=== PATIENT | female | born 1950 | race Caucasian/White ===

== ENCOUNTER → 2021-10-18 13:28 | Outpatient (CLI) | payer MEDICARE, SELFPAY ==
--- NOTE | ~2021-10-18 | MM_ITS ---
EXAMINATION: MM screening daniel BI w earle HISTORY: Screening mammogram TECHNIQUE: Craniocaudal and mediolateral oblique 3-D tomosynthesis images were obtained and synthetic 2-D images were generated. CAD analysis was submitted and interpreted. COMPARISON: 04/13/2018, 04/03/2017, 03/27/2016 bilateral screening mammogram examinations BREAST PARENCHYMAL COMPOSITION: There are scattered areas of fibroglandular density. FINDINGS: There is no evidence of suspicious mass, calcification, or architectural distortion to sugg est malignancy in either breast. There has been no suspicious interval change. IMPRESSION: 1. No mammographic evidence of malignancy. 2. Recommend routine screening mammography in one year. BI-RADS Category 1: Negative Reviewed, dictated and finalized at location A.
== END ==
PROVIDERS: PCP Family Medicine; Visit Provider Family Medicine
DX: Z12.31 Encounter for screening mammogram for malignant neoplasm of breast (principal)
CPT/HCPCS: 77063; 77067

== ENCOUNTER 2022-09-14 14:13 | Inpatient (IN) | payer MEDICARE, SELFPAY ==
[2022-09-14] VITALS (18 sets, daily range): BP systolic 154–176; BP diastolic 71–88; PULSE 54–84; RESP 12–16; TEMP 36–36.4; O2SAT 87–100; BMI 17.6
--- NOTE | ~2022-09-14 | MR_ITS ---
MRI of the brain Clinical History: Frequent falls Technique: Axial and sagittal T1-weighted images were acquired. These were followed by axial T2-weigh tyson, diffusion weighted, gradient, and FLAIR images. Following intravenous administration of 9 cc Mul tiHance gadolinium, T1-weighted fat-sat imaging was performed in the axial and coronal planes. Findings: There is no acute infarct, intracranial hemorrhage, or mass lesion. There is moderate to ad vanced chronic microvascular ischemic change throughout the periventricular white matter bilaterally. Ventricles and some arachnoid spaces are dilated. Orbits are unremarkable. Paranasal sinuses and mast oid air cells are clear. Major intracranial flow voids are probably intact, though the distal right v ertebral artery appears diminutive/hypoplastic. Sagittal midline structures are intact. No abnormal postcontrast enhancement identified. IMPRESSION: No acute infarct, intracranial hemorrhage, or mass lesion. Moderate to advanced chronic microvascular ischemic change and mild to moderate generalized atrophy. Reviewed, dictated and finalized at [facility].
--- NOTE | ~2022-09-14 | XR_ITS ---
Portable chest x-ray Comparison: None Clinical History: Syncope Findings: Lungs are clear, without focal consolidation or pleural effusion. Cardiomediastinal silho uette is unremarkable. Bones and soft tissues are unremarkable. Impression: Clear lungs. Reviewed, dictated and finalized at location M. Impression: Clear lungs.
--- NOTE | ~2022-09-14 | CT_ITS ---
CT head without contrast Indication: Status post fall Technique: Serial scans were obtained through the brain without the administration of contrast. Dose reduction technique was used on this scan by utilizing automated exposure control and iterative recon struction technique. The dose-length product (DLP) was 756.67 mGy-cm. Findings: There is no evidence of intracranial hemorrhage, mass lesion, or acute infarct. The ventri cles and subarachnoid spaces are dilated, consistent with moderate atrophy. Low attenuation regions are seen within the periventricular white matter bilaterally, likely representing changes from chroni c microvascular ischemic disease. There is no evidence of edema, mass effect or midline shift. The visualized paranasal sinuses and mastoid air cells are clear. Impression: No intracranial hemorrhage, mass, or acute infarct. Atrophy and chronic white matter changes, as above. Reviewed, dictated and finalized at location . Impression: No intracranial hemorrhage, mass, or acute infarct. Atrophy and chronic white matter changes, as above.
--- NOTE | ~2022-09-14 | US_ITS ---
Procedure: Duplex Doppler examination of the bilateral carotids. Indication: Multiple falls Technique: Real time, color-flow and pulse wave Doppler examination of the bilateral carotids was performed. Findings: Ken[place] scale ultrasonography of the right neck demonstrated small plaque at the right carotid bulb/prox imal right ICA. There was demonstration of normal color-flow and Doppler waveforms within the right c ommon, internal and external carotid arteries. The peak systolic velocities in the right common, inte rnal and external carotid arteries were demonstrated to be 56 cm/sec, 49 cm/sec and 74 cm/sec respect ively. The right ICA/CCA ratio was 0.9.The proximal right internal carotid artery demonstrates 0% payton nosis relative to the normal distal artery lumen diameter. Kenney scale sonography of the left neck demonstrated small calcified plaques at the proximal left inte rnal carotid artery. There was demonstration of normal color-flow and wave forms within the left comm on, internal and external carotid arteries. The peak systolic velocities in the left common, internal and external carotid arteries were demonstrated to be 62cm/sec, 42 cm/sec and 63 cm/sec respectively . The left ICA/CCA ratio was 0.7. The proximal left internal carotid artery demonstrates 0% stenosis relative to the normal distal artery lumen diameter. There was antegrade flow demonstrated in the bilateral vertebral arteries. Impression: No hemodynamically significant stenosis of the bilateral internal carotid arteries. Antegrade flow in the bilateral vertebral arteries. Note: The methodology used is an indirect measurement validated against a direct method (such as the NASCET criteria) that compares diameters at the stenosis to the distal ICA. Reviewed, dictated and finalized at location . Impression: No hemodynamically significant stenosis of the bilateral internal carotid arter ies. Antegrade flow in the bilateral vertebral arteries. Note: The methodology used is an indirect measurement validated against a direct meth od (such as the NASCET criteria) that compares diameters at the stenosis to the distal ICA.
--- NOTE | ~2022-09-14 | CT_ITS ---
Noncontrast CT scan of the cervical spine Technique: Multiple contiguous axial [address] images of the cervical spine were obtained and rec onstructed in 2D sagittal and coronal planes on the acquisition scanner. Dose reduction technique was used on this scan by utilizing automated exposure control, adjustment of the mA and/or kV according to patient size. The dose-length product (DLP) was 114.29 mGy-cm. Clinical History: Pain Findings: No fractures or dislocations. There is moderate degenerative disc narrowing at C4-C5 and C 5-C6. There is uncovertebral degenerative change at C5-C6 bilaterally, right worse than left. There i s right neural foraminal narrowing at C5-C6. Small disc ossify complexes are present at C4-C5 and C5- C6. No prevertebral soft tissue swelling. Impression: No fracture or subluxation of the cervical spine. Mild degenerative spondylosis, as above. Reviewed, dictated and finalized at [facility]. Impression: No fracture or subluxation of the cervical spine. Mild degenerative spondylosis, as above.
--- NOTE | ~2022-09-14 | CT_ITS ---
CT of the Abdomen and Pelvis: Indication: Syncope Technique: 2.5 mm axial scans were obtained through the abdomen and pelvis following intravenous adm inistration of 100 cc of Omnipaque 350. Dose reduction technique was used on this scan by utilizing a utomated exposure control and iterative reconstruction technique. The dose-length product (DLP) was 2 70.02 mGy-cm. Findings: Scans through the lung bases are unremarkable. Diffuse fatty infiltration of the liver noted. The spleen, pancreas, gallbladder, adrenals and kidney s are within normal limits. There are atherosclerotic calcifications of the aorta. No lymphadenopath y. No bowel obstruction or bowel wall thickening. There is no evidence to suggest acute appendicitis. Images through the pelvis were performed. Urinary bladder unremarkable. No pelvic mass seen. No ascit es. Impression: No acute abnormality. Diffuse fatty infiltration of the liver. Reviewed, dictated and finalized at [facility]. Impression: No acute abnormality. Diffuse fatty infiltration of the liver.
--- NOTE | 2022-09-14 14:17 | ECG_ITS ---
Measurements Intervals [place] Rate: 53 P: 62 GA: 141 QRS: 54 QRSD: 82 T: 73 QT: 431 QTc: 406 Interpretive Statements SINUS BRADYCARDIA LONG QT INTERVAL WITH PROMINENT U WAVE ABNORMAL ECG NO PREVIOUS ECG AVAILABLE FOR COMPARISON Electronically Signed On 09-15-2022 8:24:56 CDT by Serafin Menezes M.D.
--- NOTE | 2022-09-14 14:26 | ED.FALL ---
HPI - Fall General Chief Complaint: Fall Stated Complaint: FALL/HEAD INJURY History of Present Illness HPI Narrative: This is a 71-year-old female with reported past medical history of hypothyroidism, brought in by EMS after a fall at home. The patient states she is not sure when she fell and denies pain. She hit the left side of her head. She denies recent illness, nausea, vomiting, chest pain, palpitations, bleeding from any source or burning with urination. Review of Systems Review of Systems: CONSTITUTIONAL: Denies fever, chills, or sweats. CARDIOVASCULAR: Denies chest pain, palpitations, or edema. RESPIRATORY: Denies cough or dyspnea. GASTROINTESTINAL: Denies abdominal pain, nausea, vomiting, or diarrhea. GENITOURINARY: Denies dysuria or hematuria. SKIN: Denies rash or itching. MUSCULOSKELETAL: Denies back pain, joint pain, or myalgia. NEUROLOGIC: Denies headache, numbness, dizziness, or weakness. PSYCHIATRIC: Denies anxiety or depression. PMFSH Past Medical History Medical History (Updated 09/14/22 @ 19:24 by Rod Egan MD) Hypothyroidism Surgical History Surgical History (Updated 09/14/22 @ 14:29 by Rod Egan MD) No significant past surgical history Social History Social History (Updated 09/14/22 @ 14:29 by Rod Egan MD) Smoking status: Never smoker Alcohol intake: never Substance use: never Exam Narrative: GENERAL: Well-developed, well-nourished, and in no acute distress. HEAD: Normocephalic, there is a 4 x 4 centimeter hematoma noted to the left temporal scalp with what appears to be a healing abrasion in the middle. EYES: PERRLA and EOMI. ENT: Nares clear, no rhinorrhea or epistaxis. Mucous membranes moist. Oropharynx without tonsillar hypertrophy exudate or other lesions. NECK: Supple. No adenopathy or masses. No carotid bruits or JVD. No midline spine tenderness to palpation, no step-off or crepitus CHEST: Clear to auscultation. No respiratory distress. No wheezes rales or rhonchi HEART: Regular rate and rhythm. No murmur heard. Normal peripheral pulses. ABDOMEN: Soft, nontender, nondistended, normal active bowel sounds. BACK: No midline spine tenderness to palpation, no step-off or crepitus EXTREMITIES: Normal range of motion. No edema. SKIN: Warm, dry, no rash. NEURO: No focal deficits. Alert and oriented x3. Strength 5/5 in all extremities, sensation intact bilaterally, no noted ataxia PSYCH: Normal mood and affect. Course Course Emergency Course: 15:44 - CT head negative for intracranial hemorrhage or fracture. CT cervical spine negative for fracture or dislocation. Labs demonstrate a white blood cell count elevation of 16.2. Hemoglobin and platelet count within normal limits. Chemistries demonstrate mildly decreased bicarb of 19 and a lactic acid elevation of 3.4. Troponin negative. Serum alcohol negative. Will give 2 L IV fluids. UA and chest x-ray pending. 17:37 - UA and not concerning for UTI though appears consistent with dehydration. Chest x-ray not concerning for pneumonia. The patient's daughter who is at bedside notes the patient has been confused as to her presentation here is not recalling her ongoing work-up and does not appear to be at her baseline. CT abdomen pelvis pending; will discuss patient with hospitalist. 18:19 - Discussed patient with hospitalist, VICKIE Norton who accepts admission. Vital Signs Vital signs: Vital Signs Temperature 97.5 F L 09/14/22 14:06 Pulse Rate 57 L 09/14/22 14:06 Respiratory Rate 16 09/14/22 14:06 Blood Pressure 160/82 H 09/14/22 14:06 Pulse Oximetry 97 09/14/22 14:06 Oxygen Delivery Room Air 09/14/22 14:06 Temperature 97.5 F L 09/14/22 14:06 Pulse Rate 58 L 09/14/22 18:30 Respiratory Rate 16 09/14/22 14:06 Blood Pressure 161/78 H 09/14/22 18:30 Pulse Oximetry 100 09/14/22 18:00 Oxygen Delivery Room Air 09/14/22 14:06 MDM - Fall MDM Narrative Medical
[2022-09-14 14:49] LABS: Basophils Absolute Auto 0.1 K/mm3 (0.0-0.1); Basophils Percent Auto 0.4 % (0.2-1.2); Hematocrit 39.6 % (37.0-47.0); Hemoglobin 13.8 g/dL (12.0-15.0); Immature Granulocyte Absolute 0.31 K/mm3 (0.00-0.031); Immature Granulocyte Percent A 1.9 % (0-0.5); Lymphocytes Absolute Auto 1.24 K/mm3 (0.9-3.2); Lymphocytes Percent Auto 7.7 % (18.3-44.2); Mean Corpuscular HGB Conc 34.8 g/dl (32-36); Mean Corpuscular Hemoglobin 34.4 pg (26-34); Mean Corpuscular Volume 98.8 fl (80-100); Monocytes Absolute Auto 1.2 K/mm3 (0.1-0.6); Monocytes Percent Auto 7.2 % (2.6-8.5); Neutrophils Absolute Auto 13.4 K/mm3 (1.3-6.7); Neutrophils Percent Auto 82.8 % (45.5-73.1); Nucleated Red Blood Cells Perc 0.1 % (0.0-0.2); Platelet Count Result 195 k/mm3 (150-375); Red Blood Count 4.01 M/mm3 (4.2-5.4); Red Cell Distribution Width 12.4 % (11.5-14.5); White Blood Count 16.2 K/mm3 (4.5-10.0)
[2022-09-14 15:01] LABS: Ethanol < 10 mg/dL (<10)
[2022-09-14 15:02] LABS: Lactic Acid Reflex 3.4 mmol/L (0.7-2.0)
[2022-09-14 15:13] LABS: Troponin I < 0.012 ng/mL (0.000-0.034)
[2022-09-14 15:16] LABS: Alanine Aminotransferase 29 U/L (6-35); Albumin Level 4.7 g/dL (3.5-5.1); Alkaline Phosphatase 50 U/L (38-126); Anion Gap 16 mmol/L (8-16); Aspartate Amino Transferase 40 U/L (14-36); Bilirubin,Total 1.1 mg/dL (0.2-1.3); Blood Urea Nitrogen 28 mg/dL (7-17); Calcium 9.4 mg/dL (8.4-10.2); Carbon Dioxide 19 mmol/L (22-30); Chloride 108 mmol/L (98-107); Creatine Kinase 110 U/L (30-135); Estimated Glomerular Filt Rate > 60; Glucose 146 mg/dL (65-110); INR 0.9; Magnesium 2.1 mg/dL (1.6-2.3); Potassium 3.5 mmol/L (3.4-5.0); Prothrombin Time 12.4 Seconds (11.1-14.7); Sodium 143 mmol/L (137-145)
[2022-09-14] MEDS: LACTATED RINGERS 2,000 ML 999 ML IV CONT (15:30)
[2022-09-14 16:42] LABS: Add Urine Microscopic? YES; Appearance Urine Cloudy (Clear); Bacteria Urine None Seen /hpf; Bilirubin Urine Negative (Negative); Blood Urine 1+ (Negative); Color Urine Dark Yellow (Yellow); Glucose Urine UA Negative (Negative); Hyaline Casts Urine Present /lpf; Ketones Urine 4+ mg/dL (Negative); Leukocyte Esterase Ur Negative LEU/UL (Negative); Nitrate Urine Negative (Negative); Protein Urine 3+ mg/dL (Negative); RBC Urine 0-2 /hpf (0-2); Specific Grav Ur 1.024 (1.001-1.035); Squamous Epithelial Cell Urine None seen /hpf (Few); WBC Urine 0-5 /hpf
[2022-09-14 17:47] LABS: Reflex Lactic Acid Yes or No Add Lactic
--- NOTE | 2022-09-14 19:04 | ADMGEN ---
This patient, Yisel Briggs, was admitted to [facility]. Patient/family oriented to hospital policies and general routines including ID bracelet, bed and alarms, visiting hours, pain management, procedures, bathroom and other care routines, personal items, smoking policy, room service/diet, and visiting hours. Information on how to activate the Rapid Response Team has been discussed. Patient/Family are encouraged to report perceived risks to care and to ask questions if they do not understand what they are told or what they should do.
[2022-09-14 19:54] LABS: Lactic Acid 2.9 mmol/L (0.7-2.0)
--- NOTE | 2022-09-14 20:20 | PM.IMHP ---
H&P: HPI History of Present Illness Date/Time: 09/14/22 20:20 Chief Complaint: Fall with head injury Narrative: This is a 71-year-old female patient who lives at home alone. She does have a significant other by the name of Kidamom that checks on her every day. She has a history of hypothyroidism. She was brought by EMS after a fall at home. The patient had the left side of her head has a hematoma there. She denies any nausea vomiting or diarrhea. No burning with urination. According to the daughter the patient has been having difficulty with ambulation and has been off balance. Abdominal pelvis CT was read as no acute abnormality diffuse fatty infiltration of the liver. Chest x-ray was read as clear lungs. Cervical spine CT was read as no fracture subluxation of the cervical spine. Mild degenerative spondylosis. Head CT was read as no intracranial hemorrhage mass or acute infarct. Atrophy and chronic white matter changes. The patient reports that she drinks wine daily. Her alcohol level was less than 10. Her white count was noted to be 16.2. The patient does have a large hematoma to the left side of her head. The patient does appear to be dry. She has been having poor oral intake. According to the daughter the patient is losing weight. Glucose is 146. Lactic acid was 3.4 now 2.9. The patient has 4+ ketones and 1+ urine blood. The patient was started on lactic acid and normal saline. The patient is being admitted to observation status on the date of service of 09/14/2022. Review of Systems Review of Systems: All systems reviewed & are unremarkable except as noted in HPI and below Constitutional: Constitutional: Reports as per HPI and Reports no additional constitutional complaints Eyes: Eyes: Reports as per HPI and Reports no additional eye complaints ENT: Reports system reviewed and no additional complaints, except as documented and Reports Normal hearing present Cardiovascular: Cardiovascular: Reports no additional cardiovascular complaints Respiratory: Respiratory: Reports no additional respiratory complaints and Reports no additional respiratory complaints Gastrointestinal: Gastrointestinal: Reports as per HPI and Reports no additional gastrointestinal complaints Musculoskeletal: Musculoskeletal: Reports no additional musculoskeletal complaints Integumentary/Breasts: Skin/Breast: Reports system reviewed and no additional complaints, except as docu and Reports as per HPI Neurologic: Reports system reviewed and no additional complaints, except as documented, Reports as per HPI and Reports Normal hearing present Psychiatric: Psychiatric: Reports no additional psychiatric complaints and Reports as per HPI Endocrine: Endocrine: Reports no additional endocrine complaints Hematologic/Lymphatic: Hematologic/Lymphatic: Reports no additional hematologic/lymphatic complaints Allergic/Immunologic: Allergic/Immunologic: Reports no additional allergic/immunologic complaints [facility] Past Medical History Medical History (Updated 09/15/22 @ 00:38 by Cierra Rangel NP) Hypothyroidism Tobacco abuse Surgical History Surgical History (Updated 09/15/22 @ 00:28 by Cierra Rangel NP) H/O thyroidectomy H/O: hysterectomy S/P tonsillectomy and adenoidectomy Family History Family History (Updated 09/15/22 @ 00:28 by Cierra Rangel NP) Other Hypertension Social History Social History (Updated 09/15/22 @ 00:29 by Cierra Rangel NP) Social History: The patient is and lives home alone. 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 She has 1 daughter who is the durable power executive compensation analyst for healthcare. The patient smoked many years ago and quit for 22 years and recently started smoking again at least a pack a day. The patient stated that she drinks wine every day and tries not to drink a bottle wine a day. Code status full code Smoking packs per day: 2 Smoking cigarettes per day: 40.0 Smoking stat
[2022-09-14] MEDS: chlordiazePOXIDE (*CRX) 25 MG CAPSULE 50 MG PO (22:56)
[2022-09-14] MEDS: LORazepam INJ (*CRX) 2 MG/ML VIAL IV PUSH (22:56)
[2022-09-15] VITALS (13 sets, daily range): BP systolic 115–152; BP diastolic 63–85; PULSE 54–76; RESP 12–20; TEMP 36.1–37.1; O2SAT 92–100
[2022-09-15 02:03] LABS: Glucose Point of Care 58 mg/dl (65-105)
[2022-09-15] MEDS: DEXTROSE 50% 25 GM/50 ML SYRINGE IV PUSH (02:13)
[2022-09-15 02:29] LABS: Glucose Point of Care 319 mg/dl (65-105)
[2022-09-15 05:57] LABS: Glucose Point of Care 112 mg/dl (65-105)
[2022-09-15 07:00] LABS: Basophils Absolute Auto 0.1 K/mm3 (0.0-0.1); Basophils Percent Auto 0.4 % (0.2-1.2); Eosinophils Percent Auto 0.1 % (0-4.4); Hematocrit 37.3 % (37.0-47.0); Immature Granulocyte Absolute 0.17 K/mm3 (0.00-0.031); Immature Granulocyte Percent A 1.3 % (0-0.5); Lymphocytes Absolute Auto 2.68 K/mm3 (0.9-3.2); Lymphocytes Percent Auto 20.6 % (18.3-44.2); Mean Corpuscular HGB Conc 34.9 g/dl (32-36); Mean Corpuscular Hemoglobin 34.4 pg (26-34); Mean Corpuscular Volume 98.7 fl (80-100); Mean Platelet Volume 9.8 fl (7.4-10.4); Monocytes Absolute Auto 1.7 K/mm3 (0.1-0.6); Monocytes Percent Auto 13.1 % (2.6-8.5); Neutrophils Absolute Auto 8.4 K/mm3 (1.3-6.7); Neutrophils Percent Auto 64.5 % (45.5-73.1); Nucleated Red Blood Cells Perc 0.2 % (0.0-0.2); Platelet Count Result 156 k/mm3 (150-375); Red Blood Count 3.78 M/mm3 (4.2-5.4); Red Cell Distribution Width 12.3 % (11.5-14.5)
[2022-09-15] MEDS: DEXTROSE 5%/0.45% SOD CHL 1,000 ML 50 ML IV CONT (07:07)
[2022-09-15 07:09] LABS: Lactic Acid Reflex 1.4 mmol/L (0.7-2.0)
[2022-09-15 07:21] LABS: Anion Gap 8 mmol/L (8-16); Blood Urea Nitrogen 19 mg/dL (7-17); Carbon Dioxide 27 mmol/L (22-30); Chloride 106 mmol/L (98-107); Estimated CRCL calculation 77 ml/min; Estimated Glomerular Filt Rate > 60; Glucose 92 mg/dL (65-110); Magnesium 2.5 mg/dL (1.6-2.3); Potassium 2.5 mmol/L (3.4-5.0); Sodium 141 mmol/L (137-145)
[2022-09-15 07:36] LABS: Glucose Point of Care 84 mg/dl (65-105)
[2022-09-15 08:08] LABS: Lipase 76 U/L (23-300)
[2022-09-15 08:30] LABS: Glucose Point of Care 81 mg/dl (65-105)
--- NOTE | 2022-09-15 08:51 | PM.IMPN ---
Progress Note: A&P Assessment and Plan (1) Altered mental status: Qualifiers: Altered mental status type: unspecified Qualified Code(s): R41.82 - Altered mental status, unspecified Code(s): R41.82 - Altered mental status, unspecified Status: Acute Assessment and Plan: 09/14 CT Brain: No intracranial hemorrhage, mass, or acute infarct. 09/15 MRI Brain ordered 09/15 d/w daughter at bedside that visual hallucinations due to alcohol withdrawal usually do not occur this early in the course. Thiamine was given at admission. No other signs or Wernicke encephalopathy. No prior hx of mental illness. (2) Alcohol abuse: Code(s): F10.10 - Alcohol abuse, uncomplicated Status: Acute Assessment and Plan: Continue with the CIWA score Hold Librium Continue PRN lorazepam Continue thiamine and folic acid (3) Hypothyroidism: Qualifiers: Hypothyroidism type: acquired Qualified Code(s): E03.9 - Hypothyroidism, unspecified Code(s): E03.9 - Hypothyroidism, unspecified Status: Acute Assessment and Plan: TSH 25.7, c/w nonadherence to medication 09/15 IV levothyroxine 50 mcg daily due to AMS, prevention of myxedema coma (4) Abdominal pain: Qualifiers: Abdominal location: upper abdomen, unspecified Qualified Code(s): R10.10 - Upper abdominal pain, unspecified Code(s): R10.9 - Unspecified abdominal pain Status: Acute Assessment and Plan: Suspect alcohol induced gastritis vs PUD CT Abd/pelvis with fatty liver, no other pathology identified 09/15 Pantoprazole 40mg IV q AM, monitor h/h, gi eval when MS improves (5) Alcoholic ketosis: Code(s): E88.89 - Other specified metabolic disorders Status: Acute Assessment and Plan: Urine ketones +, no anion gap, low NL BS Thiamine, IV saline with dextrose (6) Hypokalemia: Code(s): E87.6 - Hypokalemia Status: Acute Assessment and Plan: Likely due to alcohol, poor PO intake 09/15 mag 2.5, k 2.5, IVPB peripheral KCL due to AMS (7) Tobacco abuse: Code(s): Z72.0 - Tobacco use Status: Acute Assessment and Plan: Continue nicotine patch Subjective Date/time seen: 06/25/23 08:51 Interval history: Admitted 09/14 with fall confusion suspected alcohol withdrawal. No focal signs at that time. CT brain with signs of atherosclerosis but no acute changes. Confused overnight with visual and auditory hallucinations. Last dose of chlordiazepoxide and Ativan around 11:00 p.m. 09/14. Today she is somnolent. Moves all extremities but has minimal movement of the right upper extremity. She is right-handed. Last known drink of alcohol was 09/12. Uncertain whether she drank 09/13. Daughter is at bedside providing history. She notes that patient does not eat much at all and that her only med is levothyroxine which she may or may not take as prescribed. Last physical was by insurance [employer] about 11/2021. She does drink at least one box (approx 3 L) of wine per week and also goes out to lunch daily with a friend but does not eat much. Unknown how much she drinks when at lunch. Does not eat by herself. Recently c/o abdominal pain, upper, with decreased appetite. Stopped attending family functions since about August 03. Also recent issues with constipation. Review of Systems Review of Systems: ROS unobtainable: Yes unobtainable due to medical condition Exam Narrative: Chronically ill-appearing elderly female. Head with contusion left frontal Eyes pupils equal round reactive to light, negative dolls eyes Pharynx dry mucosa Neck no JVD with prior thyroidectomy scar Chest clear to auscultation Heart regular rate without audible murmur Abdomen hypoactive bowel sounds soft no palpable masses or organomegaly Extremities no edema cyanosis or clubbing. Pedal pulses intact. Musculoskeletal no deformity to visual inspection Neurologic cranial nerves 3-12 symmetric to visual i
[2022-09-15] MEDS: KCL 40 MEQ/WATER 100 ML 100 ML 25 ML IVPB (09:19)
[2022-09-15] MEDS: THIAMINE HCL 200 MG/2 ML VIAL 100 MG IV PUSH ×2 (09:22→09:23)
[2022-09-15] MEDS: FOLIC ACID 1 MG/0.2 ML INJ IV PUSH ×2 (09:22→09:29)
[2022-09-15] MEDS: DEXTROSE 5%/0.9% SOD CHL 500 ML 75 ML IV CONT ×2 (09:30→17:23)
[2022-09-15] MEDS: LEVOTHYROXINE SODIUM INJ 100 MCG/5 ML VIAL 50 MCG IV PUSH (09:31)
[2022-09-15] MEDS: PANTOPRAZOLE SODIUM IV 40 MG VIAL IV PUSH (09:31)
[2022-09-15 10:13] LABS: Amphetamine Screen Urine Negative (Negative); Barbiturate Screen Urine Negative (Negative); Benzodiazepines Screen Urine Negative (Negative); Cannabinoid Screen Urine Negative (Negative); Cocaine Screen Urine Negative (Negative); Methadone Screen Urine Negative (Negative); Opiate Screen Urine Negative (Negative); Phencyclidine Screen Urine Negative (Negative)
[2022-09-15 10:20] LABS: Free T4 Free Thyroxine Reflex 0.51 ng/dL (0.78-2.19)
[2022-09-15 12:24] LABS: Glucose Point of Care 82 mg/dl (65-105)
[2022-09-15 15:53] LABS: Glucose Point of Care 160 mg/dl (65-105)
[2022-09-15] MEDS: DEXTROSE 5%/0.9% SOD CHL 1,000 ML 75 ML IV CONT ×2 (17:33→18:00)
[2022-09-15 18:02] LABS: Ammonia < 9 umol/L (9-30)
[2022-09-15 18:10] LABS: Anion Gap 7 mmol/L (8-16); Blood Urea Nitrogen 17 mg/dL (7-17); Calcium 9.1 mg/dL (8.4-10.2); Carbon Dioxide 28 mmol/L (22-30); Chloride 108 mmol/L (98-107); Estimated CRCL calculation 64 ml/min; Estimated Glomerular Filt Rate > 60; Glucose 125 mg/dL (65-110); Potassium 2.7 mmol/L (3.4-5.0); Sodium 143 mmol/L (137-145)
[2022-09-15] MEDS: POTASSIUM CHLORIDE INJ 40 MEQ in SODIUM CHLORIDE 0.9% IV 500 ML 130 MEQ IVPB (18:37)
[2022-09-15] MEDS: LORazepam INJ (*CRX) 2 MG/ML VIAL IV PUSH (19:59)
[2022-09-15 23:20] LABS: Glucose Point of Care 135 mg/dl (65-105)
[2022-09-16] VITALS (8 sets, daily range): BP systolic 137–165; BP diastolic 55–83; PULSE 60–76; RESP 14–16; TEMP 35.8–36.7; O2SAT 97–99; BMI 17.6
[2022-09-16] MEDS: LORazepam INJ (*CRX) 2 MG/ML VIAL IV PUSH (04:07)
[2022-09-16 05:13] LABS: Glucose Point of Care 146 mg/dl (65-105)
[2022-09-16] MEDS: LEVOTHYROXINE SODIUM INJ 100 MCG/5 ML VIAL 50 MCG IV PUSH (05:24)
[2022-09-16] MEDS: DEXTROSE 5%/0.9% SOD CHL 1,000 ML 75 ML IV CONT (05:29)
[2022-09-16 06:39] LABS: Hematocrit 36.2 % (37.0-47.0); Hemoglobin 12.3 g/dL (12.0-15.0); Mean Corpuscular Hemoglobin 33.6 pg (26-34); Mean Corpuscular Volume 98.9 fl (80-100); Mean Platelet Volume 9.9 fl (7.4-10.4); Platelet Count Result 145 k/mm3 (150-375); Red Blood Count 3.66 M/mm3 (4.2-5.4); Red Cell Distribution Width 12.2 % (11.5-14.5)
[2022-09-16 06:41] LABS: Alanine Aminotransferase 21 U/L (6-35); Albumin Level 3.4 g/dL (3.5-5.1); Alkaline Phosphatase 49 U/L (38-126); Anion Gap 2 mmol/L (8-16); Aspartate Amino Transferase 31 U/L (14-36); Bilirubin,Total 0.5 mg/dL (0.2-1.3); Blood Urea Nitrogen 13 mg/dL (7-17); Calcium 8.5 mg/dL (8.4-10.2); Carbon Dioxide 26 mmol/L (22-30); Chloride 114 mmol/L (98-107); Estimated CRCL calculation 77 ml/min; Estimated Glomerular Filt Rate > 60; Glucose 119 mg/dL (65-110); Magnesium 1.9 mg/dL (1.6-2.3); Phosphorus 1.8 mg/dL (2.5-4.5); Potassium 2.9 mmol/L (3.4-5.0); Sodium 142 mmol/L (137-145)
[2022-09-16 07:45] LABS: Glucose Point of Care 113 mg/dl (65-105)
[2022-09-16] MEDS: POTASSIUM CHLORIDE INJ 40 MEQ in SODIUM CHLORIDE 0.9% IV 500 ML 130 MEQ IVPB (10:00)
[2022-09-16] MEDS: FOLIC ACID 1 MG/0.2 ML INJ IV PUSH (10:00)
[2022-09-16] MEDS: THIAMINE HCL 200 MG/2 ML VIAL 100 MG IV PUSH (10:02)
[2022-09-16] MEDS: NICOTINE (*PBKC) 21 MG PATCH 1 PATCH TRANSDERM (10:02)
[2022-09-16] MEDS: PANTOPRAZOLE SODIUM IV 40 MG VIAL IV PUSH (10:03)
--- NOTE | 2022-09-16 10:59 | PM.IMPN ---
Progress Note: A&P Assessment and Plan (1) Altered mental status: Qualifiers: Altered mental status type: unspecified Qualified Code(s): R41.82 - Altered mental status, unspecified Code(s): R41.82 - Altered mental status, unspecified Status: Acute Assessment and Plan: 09/14 CT Brain: No intracranial hemorrhage, mass, or acute infarct. 09/15 MRI Brain negative for any acute pathology (2) Alcohol abuse: Code(s): F10.10 - Alcohol abuse, uncomplicated Status: Acute Assessment and Plan: Continue with the CIWA score Continue librium Continue PRN lorazepam Continue thiamine and folic acid (3) Hypothyroidism: Qualifiers: Hypothyroidism type: acquired Qualified Code(s): E03.9 - Hypothyroidism, unspecified Code(s): E03.9 - Hypothyroidism, unspecified Status: Acute Assessment and Plan: TSH 25.7, c/w nonadherence to medication 09/15 IV levothyroxine 50 mcg daily due to AMS, prevention of myxedema coma (4) Abdominal pain: Qualifiers: Abdominal location: upper abdomen, unspecified Qualified Code(s): R10.10 - Upper abdominal pain, unspecified Code(s): R10.9 - Unspecified abdominal pain Status: Acute Assessment and Plan: Suspect alcohol induced gastritis vs PUD CT Abd/pelvis with fatty liver, no other pathology identified 09/15 Pantoprazole 40mg IV q AM (5) Alcoholic ketosis: Code(s): E88.89 - Other specified metabolic disorders Status: Acute Assessment and Plan: Urine ketones +, no anion gap, low NL BS Thiamine, IV saline with dextrose (6) Hypokalemia: Code(s): E87.6 - Hypokalemia Status: Acute Assessment and Plan: Likely due to alcohol, poor PO intake Replace with IV supplementation (7) Tobacco abuse: Code(s): Z72.0 - Tobacco use Status: Acute Assessment and Plan: Continue nicotine patch Subjective Date/time seen: 09/16/22 10:59 Interval history: Patient is sleeping. Received Ativan late last night Review of Systems Review of Systems: ROS unobtainable: Yes unobtainable due to medical condition Exam Narrative: Chronically ill-appearing elderly female. Head with contusion left frontal Eyes pupils equal round reactive to light, negative dolls eyes Pharynx dry mucosa Neck no JVD with prior thyroidectomy scar Chest clear to auscultation Heart regular rate without audible murmur Abdomen hypoactive bowel sounds soft no palpable masses or organomegaly Extremities no edema cyanosis or clubbing. Pedal pulses intact. Musculoskeletal no deformity to visual inspection Neurologic cranial nerves 3-12 symmetric to visual inspection. Objective Data Vital Signs Vital Signs: Vital Signs - 24 hr 09/15/22 11:07 09/15/22 12:00 09/15/22 14:00 Temperature 97 F L 97.3 F L Pulse Rate 56 L 58 L Respiratory Rate 16 16 Blood Pressure 148/73 H 137/63 Pulse Oximetry 92 99 Oxygen Delivery Room Air 09/15/22 16:00 09/15/22 16:00 09/15/22 19:43 Temperature 97.3 F L 98.7 F Pulse Rate 58 L 54 L 75 Respiratory Rate 16 16 Blood Pressure 137/63 140/74 Pulse Oximetry 99 100 Oxygen Delivery 09/15/22 20:00 09/15/22 20:00 09/15/22 23:18 Temperature 97.5 F L Pulse Rate 75 68 Respiratory Rate 16 Blood Pressure 140/74 152/70 H Pulse Oximetry 99 Oxygen Delivery 09/16/22 00:00 09/15/22 20:00 09/16/22 00:00 Temperature Pulse Rate 68 66 Respiratory Rate 16 Blood Pressure 152/70 H Pulse Oximetry 99 Oxygen Delivery Room Air 09/16/22 03:58 09/16/22 04:00 09/16/22 04:00 Temperature 98.0 F Pulse Rate 71 69 Respiratory Rate 16 Blood Pressure 142/68 H 142/68 H Pulse Oximetry 99 Oxygen Delivery 09/16/22 08:00 09/16/22 08:52 Temperature 97.2 F L Pulse Rate 60 Respiratory Rate 14 Blood Pressure 158/77 H Pulse Oximetry 99 97 Oxygen Delivery Room Air Intake/Output Intake/Output: Int
[2022-09-16 12:05] LABS: Glucose Point of Care 108 mg/dl (65-105)
[2022-09-16] MEDS: chlordiazePOXIDE (*CRX) 25 MG CAPSULE 50 MG PO ×2 (12:37→17:17)
[2022-09-16 16:29] LABS: Glucose Point of Care 111 mg/dl (65-105)
[2022-09-16 21:09] LABS: Glucose Point of Care 124 mg/dl (65-105)
[2022-09-17] VITALS (7 sets, daily range): BP systolic 112–185; BP diastolic 66–93; PULSE 66–83; RESP 14–16; TEMP 35.6–36.3; O2SAT 97–100
[2022-09-17] MEDS: chlordiazePOXIDE (*CRX) 25 MG CAPSULE 50 MG PO (00:25)
[2022-09-17 01:52] LABS: Basophils Absolute Auto 0.1 K/mm3 (0.0-0.1); Basophils Percent Auto 1.1 % (0.2-1.2); Eosinophils Absolute Auto 0.1 K/mm3 (0-0.3); Eosinophils Percent Auto 0.9 % (0-4.4); Hematocrit 38.1 % (37.0-47.0); Hemoglobin 13.2 g/dL (12.0-15.0); Immature Granulocyte Absolute 0.35 K/mm3 (0.00-0.031); Immature Granulocyte Percent A 3.8 % (0-0.5); Lymphocytes Absolute Auto 2.63 K/mm3 (0.9-3.2); Lymphocytes Percent Auto 28.5 % (18.3-44.2); Mean Corpuscular HGB Conc 34.6 g/dl (32-36); Mean Corpuscular Hemoglobin 34.4 pg (26-34); Mean Corpuscular Volume 99.2 fl (80-100); Mean Platelet Volume 9.6 fl (7.4-10.4); Monocytes Percent Auto 10.5 % (2.6-8.5); Neutrophils Absolute Auto 5.1 K/mm3 (1.3-6.7); Neutrophils Percent Auto 55.2 % (45.5-73.1); Platelet Count Result 142 k/mm3 (150-375); Red Blood Count 3.84 M/mm3 (4.2-5.4); Red Cell Distribution Width 12.4 % (11.5-14.5); White Blood Count 9.2 K/mm3 (4.5-10.0)
[2022-09-17 02:39] LABS: Anion Gap 2 mmol/L (8-16); Blood Urea Nitrogen 7 mg/dL (7-17); Calcium 8.9 mg/dL (8.4-10.2); Carbon Dioxide 29 mmol/L (22-30); Chloride 110 mmol/L (98-107); Estimated CRCL calculation 64 ml/min; Estimated Glomerular Filt Rate > 60; Glucose 110 mg/dL (65-110); Potassium 2.9 mmol/L (3.4-5.0); Sodium 141 mmol/L (137-145)
[2022-09-17] MEDS: LEVOTHYROXINE SODIUM INJ 100 MCG/5 ML VIAL 50 MCG IV PUSH (06:11)
--- NOTE | 2022-09-17 06:49 | PC.NURSE ---
flora held this am, pt very drowsy.
[2022-09-17 07:51] LABS: Glucose Point of Care 115 mg/dl (65-105)
[2022-09-17] MEDS: NICOTINE (*PBKC) 21 MG PATCH 1 PATCH TRANSDERM (08:12)
[2022-09-17] MEDS: PANTOPRAZOLE SODIUM IV 40 MG VIAL IV PUSH (08:15)
[2022-09-17] MEDS: THIAMINE HCL 200 MG/2 ML VIAL 100 MG IV PUSH (08:16)
[2022-09-17] MEDS: FOLIC ACID 1 MG/0.2 ML INJ IV PUSH (08:18)
[2022-09-17 08:22] LABS: Anion Gap 3 mmol/L (8-16); Blood Urea Nitrogen 7 mg/dL (7-17); Carbon Dioxide 30 mmol/L (22-30); Chloride 107 mmol/L (98-107); Estimated CRCL calculation 77 ml/min; Estimated Glomerular Filt Rate > 60; Glucose 106 mg/dL (65-110); Magnesium 1.5 mg/dL (1.6-2.3); Phosphorus 2.2 mg/dL (2.5-4.5); Potassium 3.2 mmol/L (3.4-5.0); Sodium 140 mmol/L (137-145)
--- NOTE | 2022-09-17 09:42 | PM.IMPN ---
Progress Note: A&P Assessment and Plan (1) Altered mental status: Qualifiers: Altered mental status type: unspecified Qualified Code(s): R41.82 - Altered mental status, unspecified Code(s): R41.82 - Altered mental status, unspecified Status: Acute Assessment and Plan: 09/14 CT Brain: No intracranial hemorrhage, mass, or acute infarct. 09/15 MRI Brain negative for any acute pathology Likely secondary to chronic alcoholism (2) Alcohol abuse: Code(s): F10.10 - Alcohol abuse, uncomplicated Status: Acute Assessment and Plan: Continue with the CIWA score Hold Librium and lorazepam for now to keep the patient awake. Will resume if signs of alcohol withdrawal reappear Continue thiamine and folic acid (3) Hypothyroidism: Qualifiers: Hypothyroidism type: acquired Qualified Code(s): E03.9 - Hypothyroidism, unspecified Code(s): E03.9 - Hypothyroidism, unspecified Status: Acute Assessment and Plan: TSH 25.7, c/w nonadherence to medication 09/15 IV levothyroxine 50 mcg daily due to AMS, prevention of myxedema coma (4) Abdominal pain: Qualifiers: Abdominal location: upper abdomen, unspecified Qualified Code(s): R10.10 - Upper abdominal pain, unspecified Code(s): R10.9 - Unspecified abdominal pain Status: Acute Assessment and Plan: Suspect alcohol induced gastritis vs PUD CT Abd/pelvis with fatty liver, no other pathology identified 09/15 Pantoprazole 40mg IV q AM (5) Alcoholic ketosis: Code(s): E88.89 - Other specified metabolic disorders Status: Acute Assessment and Plan: Urine ketones +, no anion gap, low NL BS Thiamine, IV saline with dextrose (6) Hypokalemia: Code(s): E87.6 - Hypokalemia Status: Acute Assessment and Plan: Likely due to alcohol, poor PO intake Replace with IV supplementation (7) Tobacco abuse: Code(s): Z72.0 - Tobacco use Status: Acute Assessment and Plan: Continue nicotine patch Subjective Date/time seen: 09/17/22 09:42 Interval history: Patient has been sleeping since yesterday. Was difficult to awake. Review of Systems Review of Systems: ROS unobtainable: Yes unobtainable due to medical condition Exam Narrative: Chronically ill-appearing elderly female. Head with contusion left frontal Eyes pupils equal round reactive to light, negative dolls eyes Pharynx dry mucosa Neck no JVD with prior thyroidectomy scar Chest clear to auscultation Heart regular rate without audible murmur Abdomen hypoactive bowel sounds soft no palpable masses or organomegaly Extremities no edema cyanosis or clubbing. Pedal pulses intact. Musculoskeletal no deformity to visual inspection Neurologic cranial nerves 3-12 symmetric to visual inspection. Objective Data Vital Signs Vital Signs: Vital Signs - 24 hr 09/16/22 12:00 09/16/22 16:00 09/16/22 12:00 Temperature 97.7 F 97 F L Pulse Rate 75 71 76 Pulse Rate [Monitor] Respiratory Rate 14 14 Blood Pressure 165/83 H 149/77 H Pulse Oximetry 97 97 Oxygen Delivery 09/16/22 16:00 09/16/22 20:00 09/16/22 20:00 Temperature Pulse Rate 68 Pulse Rate [Monitor] 73 Respiratory Rate Blood Pressure Pulse Oximetry Oxygen Delivery Room Air 09/16/22 20:00 09/17/22 00:00 09/16/22 20:00 Temperature 96.4 F L 96.1 F L Pulse Rate 74 66 76 Pulse Rate [Monitor] Respiratory Rate 14 14 Blood Pressure 137/55 L 157/75 H Pulse Oximetry 99 100 Oxygen Delivery 09/17/22 00:00 09/17/22 04:00 09/17/22 04:00 Temperature Pulse Rate 68 75 Pulse Rate [Monitor] 75 Respiratory Rate Blood Pressure Pulse Oximetry Oxygen Delivery 09/17/22 04:00 09/17/22 08:00 Temperature 96.2 F L 96.9 F L Pulse Rate 73 83 Pulse Rate [Monitor] Respiratory Rate 16 14 Blood Pressure 142/90 H 185/93 H Pulse Oximetry 98 100 Oxygen Delivery Int
[2022-09-17] MEDS: MAGNESIUM SULF 2 GM/WATER 50ML 2 GM/50 ML BAG IVPB (10:04)
[2022-09-17 11:36] LABS: Glucose Point of Care 131 mg/dl (65-105)
[2022-09-17] MEDS: SODIUM PHOSPHATE 20 MM in DEXTROSE 5% IN WATER 250 ML 50 MM IVPB (11:51)
[2022-09-17 16:26] LABS: Glucose Point of Care 122 mg/dl (65-105)
[2022-09-17 21:28] LABS: Glucose Point of Care 121 mg/dl (65-105)
[2022-09-18] VITALS (9 sets, daily range): BP systolic 136–152; BP diastolic 63–83; PULSE 53–73; RESP 15–18; TEMP 35.6–36.3; O2SAT 96–100
[2022-09-18] MEDS: LEVOTHYROXINE SODIUM INJ 100 MCG/5 ML VIAL 50 MCG IV PUSH (05:52)
[2022-09-18 06:48] LABS: Hematocrit 38.7 % (37.0-47.0); Hemoglobin 12.8 g/dL (12.0-15.0); Immature Platelet Fraction Pct 4.9 % (0.9-11.2); Mean Corpuscular HGB Conc 33.1 g/dl (32-36); Mean Corpuscular Volume 102.7 fl (80-100); Mean Platelet Volume 10.2 fl (7.4-10.4); Platelet Count Result 148 k/mm3 (150-375); Red Blood Count 3.77 M/mm3 (4.2-5.4); Red Cell Distribution Width 12.3 % (11.5-14.5); White Blood Count 9.5 K/mm3 (4.5-10.0)
[2022-09-18 06:51] LABS: Anion Gap 4 mmol/L (8-16); Blood Urea Nitrogen 8 mg/dL (7-17); Calcium 8.7 mg/dL (8.4-10.2); Carbon Dioxide 24 mmol/L (22-30); Chloride 111 mmol/L (98-107); Estimated CRCL calculation 64 ml/min; Estimated Glomerular Filt Rate > 60; Glucose 104 mg/dL (65-110); Potassium 3.2 mmol/L (3.4-5.0); Sodium 139 mmol/L (137-145)
[2022-09-18 07:37] LABS: Glucose Point of Care 104 mg/dl (65-105)
[2022-09-18] MEDS: NICOTINE (*PBKC) 21 MG PATCH 1 PATCH TRANSDERM (09:08)
[2022-09-18] MEDS: THIAMINE HCL 200 MG/2 ML VIAL 100 MG IV PUSH (09:11)
[2022-09-18] MEDS: FOLIC ACID 1 MG/0.2 ML INJ IV PUSH (09:11)
[2022-09-18] MEDS: PANTOPRAZOLE SODIUM IV 40 MG VIAL IV PUSH (09:12)
--- NOTE | 2022-09-18 09:51 | P.CDI_ITS ---
CDI Query Clarification Request BMI 17.6 Nutritional Diagnostic Statement: Moderate protein calorie malnutrition related to inadequate protein intake and lack of nutrient dense foods with regular ETOH intake as evidence by poor PO intake over 1 year, significant weight loss of 10% x 6 months. Please refer to the comprehensive nutrition assessment for further information. Please clarify severity of protein calorie malnutrition if known * Mild * Moderate * Severe * Other/Unspecified <Becky Phan RN - Last Filed: 09/18/22 09:58> Clarified Diagnosis Clarified Diagnosis: * Mild malnutrition <Marj Morales MD - Last Filed: 09/18/22 13:23>
[2022-09-18 11:18] LABS: Glucose Point of Care 111 mg/dl (65-105)
--- NOTE | 2022-09-18 14:50 | PM.IMPN ---
Progress Note: A&P Assessment and Plan (1) Altered mental status: Qualifiers: Altered mental status type: unspecified Qualified Code(s): R41.82 - Altered mental status, unspecified Code(s): R41.82 - Altered mental status, unspecified Status: Acute Assessment and Plan: 09/14 CT Brain: No intracranial hemorrhage, mass, or acute infarct. 09/15 MRI Brain negative for any acute pathology Likely secondary to chronic alcoholism (2) Alcohol abuse: Code(s): F10.10 - Alcohol abuse, uncomplicated Status: Acute Assessment and Plan: Continue with the CIWA score Hold Librium and lorazepam for now to keep the patient awake. Will resume if signs of alcohol withdrawal reappear Continue thiamine and folic acid (3) Hypothyroidism: Qualifiers: Hypothyroidism type: acquired Qualified Code(s): E03.9 - Hypothyroidism, unspecified Code(s): E03.9 - Hypothyroidism, unspecified Status: Acute Assessment and Plan: TSH 25.7, c/w nonadherence to medication 09/15 IV levothyroxine 50 mcg daily due to AMS, prevention of myxedema coma (4) Abdominal pain: Qualifiers: Abdominal location: upper abdomen, unspecified Qualified Code(s): R10.10 - Upper abdominal pain, unspecified Code(s): R10.9 - Unspecified abdominal pain Status: Acute Assessment and Plan: Suspect alcohol induced gastritis vs PUD CT Abd/pelvis with fatty liver, no other pathology identified 09/15 Pantoprazole 40mg IV q AM (5) Alcoholic ketosis: Code(s): E88.89 - Other specified metabolic disorders Status: Acute Assessment and Plan: Urine ketones +, no anion gap, low NL BS Thiamine, IV saline with dextrose (6) Hypokalemia: Code(s): E87.6 - Hypokalemia Status: Acute Assessment and Plan: Likely due to alcohol, poor PO intake Replace with IV supplementation (7) Tobacco abuse: Code(s): Z72.0 - Tobacco use Status: Acute Assessment and Plan: Continue nicotine patch Subjective Date/time seen: 09/18/22 14:50 Interval history: Pt appears confused and dishevelled Review of Systems Review of Systems: Ongoing confusion All systems reviewed & are unremarkable except as noted in HPI and below ROS unobtainable: Yes unobtainable due to medical condition Exam Narrative: Chronically ill-appearing elderly female. Head with contusion left frontal Eyes pupils equal round reactive to light, negative dolls eyes Pharynx dry mucosa Neck no JVD with prior thyroidectomy scar Chest clear to auscultation Heart regular rate without audible murmur Abdomen hypoactive bowel sounds soft no palpable masses or organomegaly Extremities no edema cyanosis or clubbing. Pedal pulses intact. Musculoskeletal no deformity to visual inspection Neurologic cranial nerves 3-12 symmetric to visual inspection. Objective Data Vital Signs Vital Signs: Vital Signs - 24 hr 09/17/22 15:58 09/17/22 16:00 09/17/22 20:00 Temperature 36.3 C L Pulse Rate 76 77 Pulse Rate [Bilateral Radial] 66 Pulse Rate [Monitor] 67 Respiratory Rate 14 Blood Pressure 126/73 Pulse Oximetry 99 09/17/22 20:00 09/17/22 20:00 09/18/22 00:00 Temperature 35.9 C L 36.0 C L Pulse Rate 73 70 71 Pulse Rate [Bilateral Radial] Pulse Rate [Monitor] Respiratory Rate 16 15 Blood Pressure 112/66 136/77 Pulse Oximetry 99 100 09/18/22 00:00 09/18/22 03:55 09/18/22 03:56 Temperature 36.3 C L Pulse Rate 72 62 Pulse Rate [Bilateral Radial] Pulse Rate [Monitor] 63 Respiratory Rate 15 Blood Pressure 138/63 Pulse Oximetry 96 09/18/22 04:00 09/18/22 07:52 09/18/22 08:00 Temperature 36.2 C L Pulse Rate 53 L 55 L 63 Pulse Rate [Bilateral Radial] Pulse Rate [Monitor] Respiratory Rate 18 Blood Pressure 145/76 H Pulse Oximetry 99 09/18/22 12:00 09/18/22 12:00 Temperature Pulse Rate 62 66 Pulse Rat
[2022-09-18 16:23] LABS: Glucose Point of Care 110 mg/dl (65-105)
[2022-09-18 20:13] LABS: Glucose Point of Care 116 mg/dl (65-105)
[2022-09-19] VITALS (9 sets, daily range): BP systolic 120–157; BP diastolic 70–96; PULSE 56–97; RESP 14–18; TEMP 35.7–36.9; O2SAT 92–100
[2022-09-19] MEDS: LEVOTHYROXINE SODIUM INJ 100 MCG/5 ML VIAL 50 MCG IV PUSH (06:04)
[2022-09-19 07:26] LABS: Glucose Point of Care 99 mg/dl (65-105)
[2022-09-19] MEDS: NICOTINE (*PBKC) 21 MG PATCH 1 PATCH TRANSDERM (08:22)
[2022-09-19] MEDS: FOLIC ACID 1 MG/0.2 ML INJ IV PUSH (08:22)
[2022-09-19] MEDS: PANTOPRAZOLE SODIUM IV 40 MG VIAL IV PUSH (08:24)
[2022-09-19] MEDS: THIAMINE HCL 200 MG/2 ML VIAL 100 MG IV PUSH (08:25)
[2022-09-19 11:29] LABS: Hemoglobin 12.7 g/dL (12.0-15.0); Mean Corpuscular HGB Conc 33.4 g/dl (32-36); Mean Corpuscular Hemoglobin 34.1 pg (26-34); Mean Corpuscular Volume 102.2 fl (80-100); Mean Platelet Volume 10.2 fl (7.4-10.4); Platelet Count Result 146 k/mm3 (150-375); Red Blood Count 3.72 M/mm3 (4.2-5.4); Red Cell Distribution Width 12.7 % (11.5-14.5); White Blood Count 8.2 K/mm3 (4.5-10.0)
[2022-09-19 11:33] LABS: Glucose Point of Care 112 mg/dl (65-105)
[2022-09-19 11:47] LABS: NT Pro B Type Natriuretic Pept 365 pg/mL (19.9-100)
--- NOTE | 2022-09-19 13:04 | PM.IMPN ---
Progress Note: A&P Assessment and Plan (1) Altered mental status: Qualifiers: Altered mental status type: unspecified Qualified Code(s): R41.82 - Altered mental status, unspecified Code(s): R41.82 - Altered mental status, unspecified Status: Acute Assessment and Plan: 09/14 CT Brain: No intracranial hemorrhage, mass, or acute infarct. 09/15 MRI Brain negative for any acute pathology Likely secondary to chronic alcoholism (2) Alcohol abuse: Code(s): F10.10 - Alcohol abuse, uncomplicated Status: Acute Assessment and Plan: Continue with the CIWA score Hold Librium and lorazepam for now to keep the patient awake. Will resume if signs of alcohol withdrawal reappear Continue thiamine and folic acid can consult neurology i no improvement needs placement once medically stable confusion waxes and wanes (3) Hypothyroidism: Qualifiers: Hypothyroidism type: acquired Qualified Code(s): E03.9 - Hypothyroidism, unspecified Code(s): E03.9 - Hypothyroidism, unspecified Status: Acute Assessment and Plan: TSH 25.7, c/w nonadherence to medication 09/15 IV levothyroxine 50 mcg daily due to AMS, prevention of myxedema coma (4) Abdominal pain: Qualifiers: Abdominal location: upper abdomen, unspecified Qualified Code(s): R10.10 - Upper abdominal pain, unspecified Code(s): R10.9 - Unspecified abdominal pain Status: Acute Assessment and Plan: Suspect alcohol induced gastritis vs PUD CT Abd/pelvis with fatty liver, no other pathology identified 09/15 Pantoprazole 40mg IV q AM (5) Alcoholic ketosis: Code(s): E88.89 - Other specified metabolic disorders Status: Acute Assessment and Plan: Urine ketones +, no anion gap, low NL BS Thiamine, IV saline with dextrose (6) Hypokalemia: Code(s): E87.6 - Hypokalemia Status: Acute Assessment and Plan: Likely due to alcohol, poor PO intake Replace with IV supplementation (7) Tobacco abuse: Code(s): Z72.0 - Tobacco use Status: Acute Assessment and Plan: Continue nicotine patch Subjective Date/time seen: 09/19/22 13:04 Interval history: Pt appears confused at times currently tired and sleeping in bed Long discussion with daughter who is going out of town can call her phone number anytime Mother admitted for AMS and history of alcholism Brain mri shows - Moderate to advanced chronic microvascular ischemic change and mild to moderate generalized atrophy. Review of Systems Review of Systems: Confusion waxes and wanes Exam Narrative: Chronically ill-appearing elderly female. Head with contusion left frontal Eyes pupils equal round reactive to light, negative dolls eyes Pharynx dry mucosa Neck no JVD with prior thyroidectomy scar Chest clear to auscultation Heart regular rate without audible murmur Abdomen hypoactive bowel sounds soft no palpable masses or organomegaly Extremities no edema cyanosis or clubbing. Pedal pulses intact. Musculoskeletal no deformity to visual inspection Neurologic cranial nerves 3-12 symmetric to visual inspection. Objective Data Vital Signs Vital Signs: Vital Signs - 24 hr 09/18/22 16:00 09/18/22 16:00 09/18/22 20:00 Temperature 35.6 C L Pulse Rate 62 59 L 64 Pulse Rate [Auscultation] Pulse Rate [Monitor] Respiratory Rate 16 16 Blood Pressure 152/83 H 152/79 H Pulse Oximetry 99 97 Oxygen Delivery 09/18/22 20:00 09/18/22 20:00 09/19/22 00:00 Temperature 36.0 C L Pulse Rate 61 Pulse Rate [Auscultation] Pulse Rate [Monitor] 73 Respiratory Rate 14 Blood Pressure 136/84 Pulse Oximetry 99 Oxygen Delivery Room Air 09/19/22 00:00 09/19/22 04:00 09/18/22 20:00 Temperature Pulse Rate 70 Pulse Rate [Auscultation] 69 Pulse Rate [Monitor] 68 Respiratory Rate Blood Pressure Pulse Oximetry Oxygen Delivery 0
--- NOTE | 2022-09-19 13:18 | PCNFU ---
Nutrition Follow-Up Complete: Moderate protein calorie malnutrition related to inadequate protein intake and lack of nutrient dense foods with regular ETOH intake as evidenced by poor po intake over 1 year, significant weight loss of 10% x 6 months. Goal:PO intake greater than 50% of meals and supplements Pt is not meeting goal, continue with current goal. Pt current nutrition is Full liquids. Nutrition recommendation: continue to encourage po intake Last recorded weight is 46.8 kg. Bowel Motility: No BM recorded Labs Reviewed: K:3.2, Cr:0.5 Meds Noted: protonix, folic acid, zofran Skin: WNL Additional Notes: Pt continues on a full liquid diet, intake remains poor at 5% of meals. Supplements in place per recommendations. Continue to assist with meals and encourage liquids, specifically supplements. Monitor for diet orders, intake, wt, labs. Follow up in 5 days.
[2022-09-19 16:34] LABS: Glucose Point of Care 139 mg/dl (65-105)
[2022-09-19 20:09] LABS: Glucose Point of Care 99 mg/dl (65-105)
[2022-09-20] VITALS (7 sets, daily range): BP systolic 120–167; BP diastolic 75–87; PULSE 64–157; RESP 12–16; TEMP 35.7–37.2; O2SAT 95–98
[2022-09-20 06:09] LABS: Hematocrit 42.1 % (37.0-47.0); Hemoglobin 13.7 g/dL (12.0-15.0); Mean Corpuscular HGB Conc 32.5 g/dl (32-36); Mean Corpuscular Hemoglobin 33.6 pg (26-34); Mean Corpuscular Volume 103.2 fl (80-100); Mean Platelet Volume 10.4 fl (7.4-10.4); Platelet Count Result 163 k/mm3 (150-375); Red Blood Count 4.08 M/mm3 (4.2-5.4); Red Cell Distribution Width 12.7 % (11.5-14.5); White Blood Count 9.8 K/mm3 (4.5-10.0)
[2022-09-20 06:12] LABS: Anion Gap 6 mmol/L (8-16); Blood Urea Nitrogen 5 mg/dL (7-17); Calcium 8.7 mg/dL (8.4-10.2); Carbon Dioxide 23 mmol/L (22-30); Chloride 110 mmol/L (98-107); Estimated CRCL calculation 77 ml/min; Estimated Glomerular Filt Rate > 60; Glucose 84 mg/dL (65-110); Potassium 3.2 mmol/L (3.4-5.0); Sodium 139 mmol/L (137-145)
[2022-09-20 07:44] LABS: Glucose Point of Care 166 mg/dl (65-105)
--- NOTE | 2022-09-20 09:40 | PM.IMPN ---
Progress Note: A&P Assessment and Plan (1) Altered mental status: Qualifiers: Altered mental status type: unspecified Qualified Code(s): R41.82 - Altered mental status, unspecified Code(s): R41.82 - Altered mental status, unspecified Status: Acute Assessment and Plan: 09/14 CT Brain: No intracranial hemorrhage, mass, or acute infarct. 09/15 MRI Brain negative for any acute pathology Likely secondary to chronic alcoholism (2) Alcohol abuse: Code(s): F10.10 - Alcohol abuse, uncomplicated Status: Acute Assessment and Plan: Continue with the CIWA score Hold Librium and lorazepam for now to keep the patient awake. Will resume if signs of alcohol withdrawal reappear Continue thiamine and folic acid needs placement once medically stable confusion waxes and wanes (3) Hypothyroidism: Qualifiers: Hypothyroidism type: acquired Qualified Code(s): E03.9 - Hypothyroidism, unspecified Code(s): E03.9 - Hypothyroidism, unspecified Status: Acute Assessment and Plan: TSH 25.7, c/w nonadherence to medication 09/15 IV levothyroxine 50 mcg daily due to AMS, prevention of myxedema coma (4) Abdominal pain: Qualifiers: Abdominal location: upper abdomen, unspecified Qualified Code(s): R10.10 - Upper abdominal pain, unspecified Code(s): R10.9 - Unspecified abdominal pain Status: Acute Assessment and Plan: Suspect alcohol induced gastritis vs PUD CT Abd/pelvis with fatty liver, no other pathology identified 09/15 Pantoprazole 40mg IV q AM (5) Alcoholic ketosis: Code(s): E88.89 - Other specified metabolic disorders Status: Acute Assessment and Plan: Urine ketones +, no anion gap, low NL BS Thiamine, IV saline with dextrose (6) Hypokalemia: Code(s): E87.6 - Hypokalemia Status: Acute Assessment and Plan: Likely due to alcohol, poor PO intake Replace with IV supplementation (7) Tobacco abuse: Code(s): Z72.0 - Tobacco use Status: Acute Assessment and Plan: Continue nicotine patch Plan DVT prophylaxis with SCDs GI prophylaxis not indicated Code status full code Subjective Date/time seen: 09/20/22 09:40 Interval history: 79-year-old female with long history of alcoholism here for altered mental status, concerning for wernicke vs korsakoff. No overnight events noted. No chest pain or shortness of breath. No nausea, vomiting or diarrhea. No fevers or chills. Review of Systems Review of Systems: 12 point review of systems was assessed and was negative except as noted in the HPI Exam Narrative: General: No acute distress, alert and oriented per baseline HEENT: Atraumatic, normocephalic, mucous membranes moist CV: Regular rate and rhythm, S1, S2 Lungs: Clear to auscultation bilaterally, no rales or crackles noted, no wheezes, good air entry Abdomen: Soft, nontender, nondistended Extremities: Normal to inspection Skin: No rashes noted, no lesions or wounds seen Psych: Euthymic, normal affect Objective Data Vital Signs Vital Signs: Vital Signs - 24 hr 09/19/22 12:00 09/19/22 12:00 09/19/22 16:00 Temperature 96.2 F L Pulse Rate 69 66 73 Pulse Rate [Monitor] Respiratory Rate 16 Blood Pressure 146/96 H Pulse Oximetry 92 Oxygen Delivery 09/19/22 16:00 09/19/22 19:53 09/19/22 20:00 Temperature 97.9 F Pulse Rate 75 Pulse Rate [Monitor] 76 Respiratory Rate 18 Blood Pressure 120/70 Pulse Oximetry 100 Oxygen Delivery Room Air 09/19/22 20:00 09/20/22 00:00 09/20/22 00:00 Temperature 98.4 F 97.2 F L Pulse Rate 64 74 Pulse Rate [Monitor] 83 Respiratory Rate 14 14 Blood Pressure 147/70 H 156/78 H Pulse Oximetry 100 Oxygen Delivery 09/19/22 20:00 09/20/22 00:00 09/20/22 04:00 Temperature Pulse Rate 69 68 69 Pulse Rate [Monitor] Respiratory Rate Blood Pressure Pulse
--- NOTE | 2022-09-20 09:44 | WPDNEURCNPN ---
Assessment and Plan Assessment and plan (1) Altered mental status: Qualifiers: Altered mental status type: unspecified Qualified Code(s): R41.82 - Altered mental status, unspecified Code(s): R41.82 - Altered mental status, unspecified Status: Acute (2) Alcohol abuse: Code(s): F10.10 - Alcohol abuse, uncomplicated Status: Acute (3) Hypothyroidism: Qualifiers: Hypothyroidism type: acquired Qualified Code(s): E03.9 - Hypothyroidism, unspecified Code(s): E03.9 - Hypothyroidism, unspecified Status: Acute Plan Yisel Briggs is a 71 year old female with a history of hypothyroidism, chronic alcohol use who presented due to fall and altered mental status. Found to have poorly controlled hypothyroidism, with TSH of 25. Suspect AMS to be multifactorial in the setting of hypothyroidism and alcohol withdrawal. MRI brain was unrevealing. - Check B12 and folate level - Increase Thiamine dose to 500mg TID x 3 days, then 250mg daily x 3 days, then 100mg daily Consult date: 09/20/22 Reason for consult: Altered mental status HPI: Yisel Briggs is a 71 year old female with a history of hypothyroidism, chronic alcohol use who presented due to fall and altered mental status. Patient was initially brought in after she sustained a fall. Her family also reported that she was off balance, and has been having difficulty ambulating, as well as having visual hallucinations. Patient drinks wine daily, but quantity is unclear. When she presented to [place] ED her alcohol level was negative. CT head was negative for acute process. She was started on a banana bag and thiamine, and subsequently admitted. Her TSH during this admission was 25.7. She has not been compliant with levothyroxine. There are no B12 or folate levels available, although she is getting folate supplementation. She is currently receiving Thiamine 100mg daily. MRI brain has been done which was unrevealing. [facility] Past Medical History Medical History Hypothyroidism Tobacco abuse Surgical History Surgical History H/O thyroidectomy H/O: hysterectomy S/P tonsillectomy and adenoidectomy Family History Family History Other Hypertension Social History Social History Social History: The patient is and lives home alone. 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 She has 1 daughter who is the [employer] teacher for healthcare. The patient smoked many years ago and quit for 22 years and recently started smoking again at least a pack a day. The patient stated that she drinks wine every day and tries not to drink a bottle wine a day. Code status full code Smoking packs per day: 2 Smoking cigarettes per day: 40.0 Smoking status: Current every day smoker Tobacco type: cigarettes Second hand tobacco smoke exposure: No Alcohol intake: never Substance use: never Substance use type: does not use Spiritual care concerns: No Meds Home Medications and Allergies Home Medications Medication Instructions Recorded Confirmed Type levothyroxine 88 mcg tablet 88 mcg PO DAILY 09/14/22 09/14/22 History (Synthroid) Allergies Allergy/AdvReac Type Severity Reaction Status Date / Time No Known Allergies Allergy Verified 09/15/22 08:36 Vital Signs Vital Signs - 24 hr 09/19/22 12:00 09/19/22 12:00 09/19/22 16:00 Temperature 35.7 C L Pulse Rate 69 66 73 Pulse Rate [Monitor] Respiratory Rate 16 Blood Pressure 146/96 H Pulse Oximetry 92 Oxygen Delivery 09/19/22 16:00 09/19/22 19:53 09/19/22 20:00 Temperature 36.6 C Pulse Rate 75 Pulse Rate [Monitor] 76 Respiratory Rate 18 Blood Pressure 120/70 Pulse Oximetry 100 Oxygen Delivery Room Air
[2022-09-20 11:33] LABS: Glucose Point of Care 127 mg/dl (65-105)
[2022-09-20] MEDS: LEVOTHYROXINE SODIUM INJ 100 MCG/5 ML VIAL 50 MCG IV PUSH (12:37)
[2022-09-20] MEDS: NICOTINE (*PBKC) 21 MG PATCH 1 PATCH TRANSDERM (12:38)
[2022-09-20] MEDS: PANTOPRAZOLE SODIUM IV 40 MG VIAL IV PUSH (12:38)
[2022-09-20] MEDS: THIAMINE HCL 200 MG/2 ML VIAL 100 MG IV PUSH (12:39)
[2022-09-20] MEDS: FOLIC ACID 1 MG/0.2 ML INJ IV PUSH (12:46)
[2022-09-20 16:43] LABS: Glucose Point of Care 152 mg/dl (65-105)
[2022-09-20] MEDS: chlordiazePOXIDE (*CRX) 25 MG CAPSULE 50 MG PO (19:34)
[2022-09-20 20:02] LABS: Glucose Point of Care 117 mg/dl (65-105)
[2022-09-21] VITALS (7 sets, daily range): BP systolic 119–145; BP diastolic 68–81; PULSE 60–72; RESP 16–20; TEMP 36.5–37.1; O2SAT 93–100
[2022-09-21 07:28] LABS: Glucose Point of Care 92 mg/dl (65-105)
--- NOTE | 2022-09-21 08:28 | PM.IMPN ---
Progress Note: A&P Assessment and Plan (1) Altered mental status: Qualifiers: Altered mental status type: unspecified Qualified Code(s): R41.82 - Altered mental status, unspecified Code(s): R41.82 - Altered mental status, unspecified Status: Acute Assessment and Plan: 09/14 CT Brain: No intracranial hemorrhage, mass, or acute infarct. 09/15 MRI Brain negative for any acute pathology Likely secondary to chronic alcoholism (2) Alcohol abuse: Code(s): F10.10 - Alcohol abuse, uncomplicated Status: Acute Assessment and Plan: Continue with the CIWA score, last one was 9 Still actively hallucinating Thiamine increased per neurology Concern for wernicke/kosakoff (3) Hypothyroidism: Qualifiers: Hypothyroidism type: acquired Qualified Code(s): E03.9 - Hypothyroidism, unspecified Code(s): E03.9 - Hypothyroidism, unspecified Status: Acute Assessment and Plan: TSH 25.7, c/w nonadherence to medication 09/15 IV levothyroxine 50 mcg daily due to AMS, prevention of myxedema coma (4) Abdominal pain: Qualifiers: Abdominal location: upper abdomen, unspecified Qualified Code(s): R10.10 - Upper abdominal pain, unspecified Code(s): R10.9 - Unspecified abdominal pain Status: Acute Assessment and Plan: Suspect alcohol induced gastritis vs PUD CT Abd/pelvis with fatty liver, no other pathology identified 09/15 Pantoprazole 40mg IV q AM (5) Alcoholic ketosis: Code(s): E88.89 - Other specified metabolic disorders Status: Acute Assessment and Plan: Urine ketones +, no anion gap, low NL BS Thiamine, IV saline with dextrose (6) Hypokalemia: Code(s): E87.6 - Hypokalemia Status: Acute Assessment and Plan: Likely due to alcohol, poor PO intake Replace with IV supplementation (7) Tobacco abuse: Code(s): Z72.0 - Tobacco use Status: Acute Assessment and Plan: Continue nicotine patch Plan DVT prophylaxis with SCDs GI prophylaxis not indicated Code status full code Subjective Date/time seen: 09/21/22 08:28 Interval history: 79-year-old female with long history of alcoholism here for altered mental status, concerning for wernicke vs korsakoff. No overnight events noted. No chest pain or shortness of breath. No nausea, vomiting or diarrhea. No fevers or chills. Still hallucinating. Review of Systems Review of Systems: 12 point review of systems was assessed and was negative except as noted in the HPI Exam Narrative: General: No acute distress, confused, hallucinating HEENT: Atraumatic, normocephalic, mucous membranes moist CV: Regular rate and rhythm, S1, S2 Lungs: Clear to auscultation bilaterally, no rales or crackles noted, no wheezes, good air entry Abdomen: Soft, nontender, nondistended Extremities: Normal to inspection Skin: No rashes noted, no lesions or wounds seen Psych: Unable to assess Objective Data Vital Signs Vital Signs: Vital Signs - 24 hr 09/20/22 12:00 09/20/22 12:00 09/20/22 16:00 Temperature 99.0 F Pulse Rate 157 H 76 66 Respiratory Rate 12 Blood Pressure 156/81 H Pulse Oximetry 98 Oxygen Delivery 09/20/22 19:40 09/20/22 20:00 09/21/22 06:04 Temperature 97.0 F L 97.7 F Pulse Rate 84 84 60 Respiratory Rate 16 16 16 Blood Pressure 120/84 143/72 H Pulse Oximetry 95 95 96 Oxygen Delivery Room Air 09/21/22 08:00 Temperature 97.7 F Pulse Rate 66 Respiratory Rate 18 Blood Pressure 119/74 Pulse Oximetry 97 Oxygen Delivery Intake/Output Intake/Output: Intake & Output 09/18/22 09/19/22 09/20/22 09/21/22 23:59 23:59 23:59 23:59 Intake Total 1080 1120 1020 Output Total 700 1650 900 100 Balance 380 -530 120 -100 Meds/Results Medications: Active Medications Generic Name Dose Route Start Last Admin Trade Name Freq PRN Reason Stop Dose Admin Chlordiazepoxide HCl 5
[2022-09-21 11:15] LABS: Glucose Point of Care 108 mg/dl (65-105)
[2022-09-21] MEDS: NICOTINE (*PBKC) 21 MG PATCH 1 PATCH TRANSDERM (12:49)
[2022-09-21] MEDS: THIAMINE HCL 200 MG/2 ML VIAL 100 MG IV PUSH (12:49)
[2022-09-21] MEDS: LEVOTHYROXINE SODIUM INJ 100 MCG/5 ML VIAL 50 MCG IV PUSH (12:49)
[2022-09-21] MEDS: PANTOPRAZOLE SODIUM IV 40 MG VIAL IV PUSH (12:49)
[2022-09-21] MEDS: FOLIC ACID 1 MG/0.2 ML INJ IV PUSH (12:49)
[2022-09-21 16:27] LABS: Glucose Point of Care 88 mg/dl (65-105)
[2022-09-21] MEDS: THIAMINE 500 MG/NS 100 ML 500 MG/100 ML BAG 200 MG IVPB (17:00)
[2022-09-21] MEDS: LORazepam INJ (*CRX) 2 MG/ML VIAL 1 MG IV PUSH (17:04)
[2022-09-21 20:39] LABS: Glucose Point of Care 101 mg/dl (65-105)
[2022-09-21] MEDS: SALINE LOCK FLUSH 10 ML IV PUSH (22:00)
[2022-09-22] VITALS (8 sets, daily range): BP systolic 111–163; BP diastolic 74–90; PULSE 61–89; RESP 14–18; TEMP 35.6–36.4; O2SAT 97–100
[2022-09-22] MEDS: SALINE LOCK FLUSH 10 ML IV PUSH ×3 (06:17→21:16)
[2022-09-22 07:27] LABS: Glucose Point of Care 120 mg/dl (65-105)
[2022-09-22] MEDS: PANTOPRAZOLE SODIUM IV 40 MG VIAL IV PUSH (07:49)
[2022-09-22] MEDS: FOLIC ACID 1 MG/0.2 ML INJ IV PUSH (09:02)
[2022-09-22] MEDS: THIAMINE 500 MG/NS 100 ML 500 MG/100 ML BAG 200 MG IVPB ×3 (09:02→16:35)
[2022-09-22 11:21] LABS: Glucose Point of Care 109 mg/dl (65-105)
--- NOTE | 2022-09-22 15:34 | WPDPN ---
Progress Note: A&P Assessment and Plan (1) Altered mental status: Qualifiers: Altered mental status type: unspecified Qualified Code(s): R41.82 - Altered mental status, unspecified Code(s): R41.82 - Altered mental status, unspecified Status: Acute Assessment and Plan: 09/14 CT Brain: No intracranial hemorrhage, mass, or acute infarct. 09/15 MRI Brain negative for any acute pathology Likely secondary to chronic alcoholism 09/22/2022 interval history: Today patient is more alert and oriented her daughter is present in the room, CIWA sebastian shows improvement will taper Librium 25 mg p.r.n., patient has been is also present, will continue PT OT, patient will benefit going to rehab. (2) Alcohol abuse: Code(s): F10.10 - Alcohol abuse, uncomplicated Status: Acute Assessment and Plan: Continue with the CIWA score, last one was 9 Still actively hallucinating Thiamine increased per neurology Concern for wernicke/kosakoff (3) Hypothyroidism: Qualifiers: Hypothyroidism type: acquired Qualified Code(s): E03.9 - Hypothyroidism, unspecified Code(s): E03.9 - Hypothyroidism, unspecified Status: Acute Assessment and Plan: TSH 25.7, c/w nonadherence to medication 09/15 IV levothyroxine 50 mcg daily due to AMS, prevention of myxedema coma (4) Abdominal pain: Qualifiers: Abdominal location: upper abdomen, unspecified Qualified Code(s): R10.10 - Upper abdominal pain, unspecified Code(s): R10.9 - Unspecified abdominal pain Status: Acute Assessment and Plan: Suspect alcohol induced gastritis vs PUD CT Abd/pelvis with fatty liver, no other pathology identified 09/15 Pantoprazole 40mg IV q AM (5) Alcoholic ketosis: Code(s): E88.89 - Other specified metabolic disorders Status: Acute Assessment and Plan: Urine ketones +, no anion gap, low NL BS Thiamine, IV saline with dextrose (6) Hypokalemia: Code(s): E87.6 - Hypokalemia Status: Acute Assessment and Plan: Likely due to alcohol, poor PO intake Replace with IV supplementation (7) Tobacco abuse: Code(s): Z72.0 - Tobacco use Status: Acute Assessment and Plan: Continue nicotine patch Plan DVT prophylaxis with SCDs GI prophylaxis not indicated Code status full code Subjective Date/time seen: 09/22/22 15:34 Interval history: 79-year-old female with long history of alcoholism here for altered mental status, concerning for wernicke vs korsakoff. No overnight events noted. No chest pain or shortness of breath. No nausea, vomiting or diarrhea. No fevers or chills. Still hallucinating. 09/22/2022 interval history: Today patient is more alert and oriented her daughter is present in the room, IFTIKHAR cortes shows improvement will taper Librium 25 mg p.r.n., patient has been is also present, will continue PT OT, patient will benefit going to rehab. Review of Systems Review of Systems: 12 point review of systems was assessed and was negative except as noted in the HPI Exam Narrative: Under nourished Patient is comfortable, NAD HEENT: eyes are clear and none icteric LUNGS: Normal respiratory effort ABD: Not distended Lower extremities: no edema SKIN: nonjaundiced Neuro: grossly intact. Objective Data Vital Signs Vital Signs: Vital Signs - 24 hr 09/21/22 16:00 09/21/22 20:00 09/21/22 20:00 Temperature 98.5 F 97.7 F Pulse Rate 72 67 Pulse Rate [Auscultation] 69 Pulse Rate [Bilateral Radial] 66 Respiratory Rate 18 20 Blood Pressure 131/68 145/70 H Pulse Oximetry 99 93 Oxygen Delivery Fraction of Inspired Oxygen 09/21/22 20:00 09/21/22 21:42 09/21/22 23:48 Temperature 97.9 F Pulse Rate 67 64 Pulse Rate [Auscultation] Pulse Rate [Bilateral Radial] Respiratory Rate 20 18 Blood Pressure 133/81 Pulse Oximetry 93 93 100 Oxygen Delivery Room Air Room Air
[2022-09-22 16:35] LABS: Glucose Point of Care 107 mg/dl (65-105)
[2022-09-22] MEDS: LORazepam INJ (*CRX) 2 MG/ML VIAL 1 MG IV PUSH (16:40)
[2022-09-22 20:15] LABS: Glucose Point of Care 99 mg/dl (65-105)
[2022-09-23] VITALS (9 sets, daily range): BP systolic 122–156; BP diastolic 63–81; PULSE 14–100; RESP 16; TEMP 36.2–36.3; O2SAT 92–100
[2022-09-23 05:05] LABS: Hematocrit 36.7 % (37.0-47.0); Hemoglobin 12.4 g/dL (12.0-15.0); Mean Corpuscular HGB Conc 33.8 g/dl (32-36); Mean Corpuscular Hemoglobin 34.1 pg (26-34); Mean Corpuscular Volume 100.8 fl (80-100); Mean Platelet Volume 10.1 fl (7.4-10.4); Platelet Count Result 239 k/mm3 (150-375); Red Blood Count 3.64 M/mm3 (4.2-5.4); Red Cell Distribution Width 12.6 % (11.5-14.5); White Blood Count 10.2 K/mm3 (4.5-10.0)
[2022-09-23 05:22] LABS: Anion Gap 5 mmol/L (8-16); Blood Urea Nitrogen 5 mg/dL (7-17); Calcium 8.9 mg/dL (8.4-10.2); Carbon Dioxide 26 mmol/L (22-30); Chloride 108 mmol/L (98-107); Estimated CRCL calculation 63 ml/min; Estimated Glomerular Filt Rate > 60; Glucose 101 mg/dL (65-110); Magnesium 1.7 mg/dL (1.6-2.3); Potassium 3.8 mmol/L (3.4-5.0); Sodium 139 mmol/L (137-145)
[2022-09-23] MEDS: SALINE LOCK FLUSH 10 ML IV PUSH ×2 (05:29→15:37)
[2022-09-23] MEDS: LEVOTHYROXINE SODIUM INJ 100 MCG/5 ML VIAL 50 MCG IV PUSH (05:29)
[2022-09-23] MEDS: PANTOPRAZOLE SODIUM IV 40 MG VIAL IV PUSH (07:34)
[2022-09-23] MEDS: THIAMINE 500 MG/NS 100 ML 500 MG/100 ML BAG 200 MG IVPB ×3 (07:36→17:01)
[2022-09-23 08:04] LABS: Glucose Point of Care 112 mg/dl (65-105)
--- NOTE | 2022-09-23 11:17 | PCOTNOTE ---
Patient difficult to arouse this session. Patient had family member in the room and verbalized, she is really sleeping, might want to try back in the afternoon.
[2022-09-23 11:55] LABS: Glucose Point of Care 112 mg/dl (65-105)
[2022-09-23] MEDS: FOLIC ACID 1 MG/0.2 ML INJ IV PUSH (15:37)
--- NOTE | 2022-09-23 16:01 | PCPTNOTE ---
On 09/23/22, the student, JULIA Birmingham, provided care and completed [facility] documentation on this patient. I have reviewed the student's documentation and agree with the findings.
--- NOTE | 2022-09-23 16:59 | WPDPN ---
Progress Note: A&P Assessment and Plan (1) Altered mental status: Qualifiers: Altered mental status type: unspecified Qualified Code(s): R41.82 - Altered mental status, unspecified Code(s): R41.82 - Altered mental status, unspecified Status: Acute Assessment and Plan: 09/14 CT Brain: No intracranial hemorrhage, mass, or acute infarct. 09/15 MRI Brain negative for any acute pathology Likely secondary to chronic alcoholism 09/23/2022 interval history: Today patient is sleeping, her is present in the room, CIWA sebastian shows improvement on 09/22 tapered Librium 25 mg p.r.n., will continue PT OT, patient will benefit going to rehab. (2) Alcohol abuse: Code(s): F10.10 - Alcohol abuse, uncomplicated Status: Acute Assessment and Plan: Continue with the CIWA score, last one was 9 Still actively hallucinating Thiamine increased per neurology Concern for wernicke/kosakoff (3) Hypothyroidism: Qualifiers: Hypothyroidism type: acquired Qualified Code(s): E03.9 - Hypothyroidism, unspecified Code(s): E03.9 - Hypothyroidism, unspecified Status: Acute Assessment and Plan: TSH 25.7, c/w nonadherence to medication 09/15 IV levothyroxine 50 mcg daily due to AMS, prevention of myxedema coma (4) Abdominal pain: Qualifiers: Abdominal location: upper abdomen, unspecified Qualified Code(s): R10.10 - Upper abdominal pain, unspecified Code(s): R10.9 - Unspecified abdominal pain Status: Acute Assessment and Plan: Suspect alcohol induced gastritis vs PUD CT Abd/pelvis with fatty liver, no other pathology identified 09/15 Pantoprazole 40mg IV q AM (5) Alcoholic ketosis: Code(s): E88.89 - Other specified metabolic disorders Status: Acute Assessment and Plan: Urine ketones +, no anion gap, low NL BS Thiamine, IV saline with dextrose (6) Hypokalemia: Code(s): E87.6 - Hypokalemia Status: Acute Assessment and Plan: Likely due to alcohol, poor PO intake Replace with IV supplementation (7) Tobacco abuse: Code(s): Z72.0 - Tobacco use Status: Acute Assessment and Plan: Continue nicotine patch Plan DVT prophylaxis with SCDs GI prophylaxis not indicated Code status full code Subjective Date/time seen: 09/23/22 16:59 Interval history: 79-year-old female with long history of alcoholism here for altered mental status, concerning for wernicke vs korsakoff. No overnight events noted. No chest pain or shortness of breath. No nausea, vomiting or diarrhea. No fevers or chills. Still hallucinating. 09/23/2022 interval history: Today patient is sleeping, her is present in the room, IFTIKHAR cortes shows improvement on 09/22 tapered Librium 25 mg p.r.n., will continue PT OT, patient will benefit going to rehab. Review of Systems Review of Systems: 12 point review of systems was assessed and was negative except as noted in the HPI Exam Narrative: Under nourished Patient is comfortable, NAD HEENT: eyes are clear and none icteric LUNGS: Normal respiratory effort ABD: Not distended Lower extremities: no edema SKIN: nonjaundiced Neuro: grossly intact. Objective Data Vital Signs Vital Signs: Vital Signs - 24 hr 09/22/22 19:53 09/22/22 20:00 09/22/22 20:00 Temperature 97.4 F L Pulse Rate 70 70 Pulse Rate [Auscultation] 69 Pulse Rate [Bilateral Radial] 80 Pulse Rate [Monitor] 68 Respiratory Rate 18 18 Blood Pressure 139/81 139/81 Pulse Oximetry 99 99 Oxygen Delivery Room Air Fraction of Inspired Oxygen 21 09/23/22 00:00 09/23/22 04:00 09/23/22 06:17 Temperature 97.1 F L Pulse Rate 56 L Pulse Rate [Auscultation] 69 69 Pulse Rate [Bilateral Radial] 80 80 Pulse Rate [Monitor] 68 68 Respiratory Rate 16 Blood Pressure 139/81 139/81 122/65 Pulse Oximetry 92 Oxygen Delivery Fraction of Inspired Oxyg
[2022-09-23 17:00] LABS: Glucose Point of Care 101 mg/dl (65-105)
[2022-09-23] MEDS: LORazepam INJ (*CRX) 2 MG/ML VIAL 1 MG IV PUSH (17:05)
[2022-09-23 20:39] LABS: Glucose Point of Care 103 mg/dl (65-105)
[2022-09-24] VITALS (9 sets, daily range): BP systolic 122–162; BP diastolic 68–84; PULSE 71–86; RESP 13–17; TEMP 35.9–36.3; O2SAT 96–100
[2022-09-24] MEDS: LEVOTHYROXINE SODIUM INJ 100 MCG/5 ML VIAL 50 MCG IV PUSH (05:43)
[2022-09-24] MEDS: SALINE LOCK FLUSH 10 ML IV PUSH ×5 (05:44→12:28)
[2022-09-24 07:49] LABS: Glucose Point of Care 105 mg/dl (65-105)
[2022-09-24] MEDS: THIAMINE 500 MG/NS 100 ML 500 MG/100 ML BAG 200 MG IVPB ×3 (09:29→16:58)
[2022-09-24] MEDS: PANTOPRAZOLE SODIUM IV 40 MG VIAL IV PUSH (09:31)
[2022-09-24 09:55] LABS: Hematocrit 36.3 % (37.0-47.0); Hemoglobin 11.6 g/dL (12.0-15.0); Mean Corpuscular Hemoglobin 33.1 pg (26-34); Mean Corpuscular Volume 103.7 fl (80-100); Mean Platelet Volume 9.8 fl (7.4-10.4); Platelet Count Result 228 k/mm3 (150-375); Red Cell Distribution Width 12.9 % (11.5-14.5); White Blood Count 6.6 K/mm3 (4.5-10.0)
[2022-09-24 10:07] LABS: Anion Gap 7 mmol/L (8-16); Blood Urea Nitrogen 4 mg/dL (7-17); Calcium 8.6 mg/dL (8.4-10.2); Carbon Dioxide 18 mmol/L (22-30); Chloride 113 mmol/L (98-107); Estimated CRCL calculation 63 ml/min; Estimated Glomerular Filt Rate > 60; Glucose 108 mg/dL (65-110); Magnesium 1.7 mg/dL (1.6-2.3); Potassium 3.8 mmol/L (3.4-5.0); Sodium 138 mmol/L (137-145)
[2022-09-24] MEDS: FOLIC ACID 1 MG/0.2 ML INJ IV PUSH (10:12)
[2022-09-24 11:21] LABS: Glucose Point of Care 113 mg/dl (65-105)
--- NOTE | 2022-09-24 11:37 | PCNFU ---
Nutrition Follow-Up Complete: Moderate protein calorie malnutrition related to inadequate protein intake and lack of nutrient dense foods with regular ETOH intake as evidenced by poor po intake over 1 year, significant weight loss of 10% x 6 months. Goal:PO intake greater than 50% of meals and supplements Pt is not meeting goal, but continue with same goal at this time Pt current nutrition is Full liquids. Nutrition recommendation: Continue to encourage po intake of liquids and supplements. Last recorded weight is 46.8 kg - stable Bowel Motility: No BM recorded at this time Labs Reviewed: Hgb:11.6, HCT:36.3, BUN:4, CR: 0.05 Meds Noted: folic acid, protonix, KCL, thiamin Skin: No skin issues noted Additional Notes: Pt continues on a full liquid diet, minimal intake. Pt was awake and alert this AM, spoke directly to her and informed her of importance of the Ensure shakes and ice cream cups and need for nutrition. Pt agreed and stated she will try and consume the shakes throughout the day. Monitor for diet orders, intake, wt, labs. Follow up in 5 days.
--- NOTE | 2022-09-24 13:57 | WPDPN ---
Progress Note: A&P Assessment and Plan (1) Altered mental status: Qualifiers: Altered mental status type: unspecified Qualified Code(s): R41.82 - Altered mental status, unspecified Code(s): R41.82 - Altered mental status, unspecified Status: Acute Assessment and Plan: 09/14 CT Brain: No intracranial hemorrhage, mass, or acute infarct. 09/15 MRI Brain negative for any acute pathology Likely secondary to chronic alcoholism 09/24/2022 interval history: Today patient is lying in the bed her is present in the room, CIWA portocol shows improvement on 09/22 and tapered Librium 25 mg p.r.n., will continue PT OT, patient will benefit going to rehab waiting for the placement possible tomorrow. (2) Alcohol abuse: Code(s): F10.10 - Alcohol abuse, uncomplicated Status: Acute Assessment and Plan: Continue with the CIWA score, last one was 9 Still actively hallucinating Thiamine increased per neurology Concern for wernicke/kosakoff (3) Hypothyroidism: Qualifiers: Hypothyroidism type: acquired Qualified Code(s): E03.9 - Hypothyroidism, unspecified Code(s): E03.9 - Hypothyroidism, unspecified Status: Acute Assessment and Plan: TSH 25.7, c/w nonadherence to medication 09/15 IV levothyroxine 50 mcg daily due to AMS, prevention of myxedema coma (4) Abdominal pain: Qualifiers: Abdominal location: upper abdomen, unspecified Qualified Code(s): R10.10 - Upper abdominal pain, unspecified Code(s): R10.9 - Unspecified abdominal pain Status: Acute Assessment and Plan: Suspect alcohol induced gastritis vs PUD CT Abd/pelvis with fatty liver, no other pathology identified 09/15 Pantoprazole 40mg IV q AM (5) Alcoholic ketosis: Code(s): E88.89 - Other specified metabolic disorders Status: Acute Assessment and Plan: Urine ketones +, no anion gap, low NL BS Thiamine, IV saline with dextrose (6) Hypokalemia: Code(s): E87.6 - Hypokalemia Status: Acute Assessment and Plan: Likely due to alcohol, poor PO intake Replace with IV supplementation (7) Tobacco abuse: Code(s): Z72.0 - Tobacco use Status: Acute Assessment and Plan: Continue nicotine patch Plan DVT prophylaxis with SCDs GI prophylaxis not indicated Code status full code Subjective Date/time seen: 09/24/22 13:57 Interval history: 79-year-old female with long history of alcoholism here for altered mental status, concerning for wernicke vs korsakoff. No overnight events noted. No chest pain or shortness of breath. No nausea, vomiting or diarrhea. No fevers or chills. Still hallucinating. 09/24/2022 interval history: Today patient is lying in the bed her is present in the room, IFTIKHAR portocol shows improvement on 09/22 and tapered Librium 25 mg p.r.n., will continue PT OT, patient will benefit going to rehab waiting for the placement possible tomorrow. Review of Systems Review of Systems: 12 point review of systems was assessed and was negative except as noted in the HPI Exam Narrative: Under nourished Patient is comfortable, NAD HEENT: eyes are clear and none icteric LUNGS: Normal respiratory effort ABD: Not distended Lower extremities: no edema SKIN: nonjaundiced Neuro: grossly intact. Objective Data Vital Signs Vital Signs: Vital Signs - 24 hr 09/23/22 14:05 09/23/22 16:00 09/23/22 19:58 Temperature 97.4 F L Pulse Rate 65 Pulse Rate [Auscultation] 86 Pulse Rate [Bilateral Radial] 100 Respiratory Rate 16 Blood Pressure 127/63 Pulse Oximetry 100 Oxygen Delivery 09/23/22 20:00 09/23/22 21:51 09/24/22 00:00 Temperature 97.3 F L Pulse Rate 14 L Pulse Rate [Auscultation] Pulse Rate [Bilateral Radial] 83 Respiratory Rate 16 Blood Pressure 156/69 H Pulse Oximetry 96 Oxygen Delivery Room Air 09/24/22 06:00
[2022-09-24 17:05] LABS: Glucose Point of Care 102 mg/dl (65-105)
[2022-09-24 19:49] LABS: Glucose Point of Care 102 mg/dl (65-105)
[2022-09-25] MEDS: LEVOTHYROXINE SODIUM INJ 100 MCG/5 ML VIAL 50 MCG IV PUSH (05:44)
[2022-09-25] MEDS: SALINE LOCK FLUSH 10 ML IV PUSH (05:44)
[2022-09-25 06:00] VITALS: BP 111/87; PULSE 78; RESP 16; TEMP 35.9; O2SAT 90
[2022-09-25 06:19] LABS: Hematocrit 35.6 % (37.0-47.0); Hemoglobin 11.8 g/dL (12.0-15.0); Mean Corpuscular HGB Conc 33.1 g/dl (32-36); Mean Corpuscular Hemoglobin 33.8 pg (26-34); Mean Platelet Volume 9.7 fl (7.4-10.4); Platelet Count Result 269 k/mm3 (150-375); Red Blood Count 3.49 M/mm3 (4.2-5.4); Red Cell Distribution Width 13.1 % (11.5-14.5); White Blood Count 7.8 K/mm3 (4.5-10.0)
[2022-09-25 06:29] LABS: Anion Gap 6 mmol/L (8-16); Blood Urea Nitrogen 8 mg/dL (7-17); Calcium 9.1 mg/dL (8.4-10.2); Carbon Dioxide 22 mmol/L (22-30); Chloride 109 mmol/L (98-107); Estimated CRCL calculation 63 ml/min; Estimated Glomerular Filt Rate > 60; Glucose 94 mg/dL (65-110); Magnesium 1.6 mg/dL (1.6-2.3); Sodium 137 mmol/L (137-145)
[2022-09-25 08:13] LABS: Glucose Point of Care 94 mg/dl (65-105)
[2022-09-25] MEDS: PANTOPRAZOLE SODIUM IV 40 MG VIAL IV PUSH (09:17)
[2022-09-25] MEDS: FOLIC ACID 1 MG/0.2 ML INJ IV PUSH (09:20)
[2022-09-25 11:57] LABS: Glucose Point of Care 103 mg/dl (65-105)
[2022-09-25] MEDS: THIAMINE HCL IVPB ×2 (12:43→17:03)
[2022-09-25] MEDS: SODIUM CHLORIDE 0.9% IVPB ×2 (12:43→17:03)
--- NOTE | 2022-09-25 13:08 | WPDPN ---
Progress Note: A&P Assessment and Plan (1) Altered mental status: Qualifiers: Altered mental status type: unspecified Qualified Code(s): R41.82 - Altered mental status, unspecified Code(s): R41.82 - Altered mental status, unspecified Status: Acute Assessment and Plan: 09/14 CT Brain: No intracranial hemorrhage, mass, or acute infarct. 09/15 MRI Brain negative for any acute pathology Likely secondary to chronic alcoholism 09/25/2022 interval history: Today patient is lying in the bed her brother is present in the room, CIWA portocol shows improvement on 09/22 and tapered Librium 25 mg p.r.n., patient potassium is now close to normal, will continue PT OT, patient will benefit going to rehab waiting for the placement possible tomorrow. (2) Alcohol abuse: Code(s): F10.10 - Alcohol abuse, uncomplicated Status: Acute Assessment and Plan: Continue with the CIWA score, last one was 9 Still actively hallucinating Thiamine increased per neurology Concern for wernicke/kosakoff (3) Hypothyroidism: Qualifiers: Hypothyroidism type: acquired Qualified Code(s): E03.9 - Hypothyroidism, unspecified Code(s): E03.9 - Hypothyroidism, unspecified Status: Acute Assessment and Plan: TSH 25.7, c/w nonadherence to medication 09/15 IV levothyroxine 50 mcg daily due to AMS, prevention of myxedema coma (4) Abdominal pain: Qualifiers: Abdominal location: upper abdomen, unspecified Qualified Code(s): R10.10 - Upper abdominal pain, unspecified Code(s): R10.9 - Unspecified abdominal pain Status: Acute Assessment and Plan: Suspect alcohol induced gastritis vs PUD CT Abd/pelvis with fatty liver, no other pathology identified 09/15 Pantoprazole 40mg IV q AM (5) Alcoholic ketosis: Code(s): E88.89 - Other specified metabolic disorders Status: Acute Assessment and Plan: Urine ketones +, no anion gap, low NL BS Thiamine, IV saline with dextrose (6) Hypokalemia: Code(s): E87.6 - Hypokalemia Status: Acute Assessment and Plan: Likely due to alcohol, poor PO intake Replace with IV supplementation (7) Tobacco abuse: Code(s): Z72.0 - Tobacco use Status: Acute Assessment and Plan: Continue nicotine patch Plan DVT prophylaxis with SCDs GI prophylaxis not indicated Code status full code Subjective Date/time seen: 09/25/22 13:08 Interval history: 79-year-old female with long history of alcoholism here for altered mental status, concerning for wernicke vs korsakoff. No overnight events noted. No chest pain or shortness of breath. No nausea, vomiting or diarrhea. No fevers or chills. Still hallucinating. 09/25/2022 interval history: Today patient is lying in the bed her brother is present in the room, CIWA portocol shows improvement on 09/22 and tapered Librium 25 mg p.r.n., patient potassium is now close to normal, will continue PT OT, patient will benefit going to rehab waiting for the placement possible tomorrow. Review of Systems Review of Systems: All systems reviewed & are unremarkable except as noted in HPI and below Exam Narrative: Under nourished Patient is comfortable, NAD HEENT: eyes are clear and none icteric LUNGS: Normal respiratory effort ABD: Not distended Lower extremities: no edema SKIN: nonjaundiced Neuro: grossly intact. Objective Data Vital Signs Vital Signs: Vital Signs - 24 hr 09/24/22 14:00 09/24/22 16:00 09/24/22 20:00 Temperature 97.4 F L Pulse Rate 77 Pulse Rate [Bilateral Radial] 72 86 Respiratory Rate 17 Blood Pressure 122/68 Pulse Oximetry 96 Oxygen Delivery 09/24/22 20:00 09/24/22 22:00 09/24/22 21:59 Temperature 96.7 F L Pulse Rate 82 Pulse Rate [Bilateral Radial] Respiratory Rate 14 Blood Pressure 162/82 H Pulse Oximetry 100 99 Oxygen Delivery Room Air Room Air
[2022-09-25 14:00] VITALS: BP 124/62; PULSE 91; RESP 16; TEMP 36.7; O2SAT 100
--- NOTE | 2022-09-25 14:30 | PCPTNOTE ---
On 09/25/22, the student, JULIA Birmingham, provided care and completed [facility] documentation on this patient. I have reviewed the student's documentation and agree with the findings.
[2022-09-25 16:23] LABS: Glucose Point of Care 113 mg/dl (65-105)
[2022-09-25 19:16] LABS: Red Blood Cell Folate 708 ng/mL RBC (>280)
[2022-09-25 20:18] LABS: Glucose Point of Care 99 mg/dl (65-105)
[2022-09-25 22:00] VITALS: BP 148/76; PULSE 88; RESP 16; TEMP 36.1; O2SAT 98
[2022-09-26 06:00] VITALS: PULSE 72; RESP 18; TEMP 35.9; O2SAT 100
[2022-09-26 06:29] LABS: Hematocrit 33.2 % (37.0-47.0); Hemoglobin 11.2 g/dL (12.0-15.0); Mean Corpuscular HGB Conc 33.7 g/dl (32-36); Mean Corpuscular Hemoglobin 33.9 pg (26-34); Mean Corpuscular Volume 100.6 fl (80-100); Mean Platelet Volume 9.8 fl (7.4-10.4); Platelet Count Result 259 k/mm3 (150-375); White Blood Count 8.7 K/mm3 (4.5-10.0)
[2022-09-26 06:40] LABS: Carbon Dioxide 24 mmol/L (22-30); Chloride 106 mmol/L (98-107); Potassium 3.5 mmol/L (3.4-5.0); Sodium 137 mmol/L (137-145)
[2022-09-26 06:41] LABS: Anion Gap 7 mmol/L (8-16); Blood Urea Nitrogen 13 mg/dL (7-17); Estimated CRCL calculation 63 ml/min; Estimated Glomerular Filt Rate > 60; Glucose 92 mg/dL (65-110); Magnesium 1.8 mg/dL (1.6-2.3)
[2022-09-26] MEDS: LEVOTHYROXINE SODIUM INJ 100 MCG/5 ML VIAL 50 MCG IV PUSH (06:42)
[2022-09-26] MEDS: SALINE LOCK FLUSH 10 ML IV PUSH ×2 (06:43→17:40)
[2022-09-26 07:20] LABS: Glucose Point of Care 109 mg/dl (65-105)
[2022-09-26] MEDS: THIAMINE HCL IVPB ×3 (09:26→17:38)
[2022-09-26] MEDS: PANTOPRAZOLE SODIUM IV 40 MG VIAL IV PUSH (09:26)
[2022-09-26] MEDS: SODIUM CHLORIDE 0.9% IVPB ×3 (09:26→17:38)
[2022-09-26] MEDS: FOLIC ACID 1 MG/0.2 ML INJ IV PUSH (09:27)
[2022-09-26 11:43] LABS: Glucose Point of Care 117 mg/dl (65-105)
--- NOTE | 2022-09-26 12:34 | WPDPN ---
Progress Note: A&P Assessment and Plan (1) Altered mental status: Qualifiers: Altered mental status type: unspecified Qualified Code(s): R41.82 - Altered mental status, unspecified Code(s): R41.82 - Altered mental status, unspecified Status: Acute Assessment and Plan: 09/14 CT Brain: No intracranial hemorrhage, mass, or acute infarct. 09/15 MRI Brain negative for any acute pathology Likely secondary to chronic alcoholism 09/26/2022 interval history: Today patient is lying in the bed her brother is present in the room, CIWA portocol shows improvement on 09/22 and tapered Librium 25 mg p.r.n now librium stopped, patient potassium is now close to normal, will continue PT OT, patient will benefit going to rehab waiting for the placement possible tomorrow. (2) Alcohol abuse: Code(s): F10.10 - Alcohol abuse, uncomplicated Status: Acute Assessment and Plan: Continue with the CIWA score, last one was 9 Still actively hallucinating Thiamine increased per neurology Concern for wernicke/kosakoff (3) Hypothyroidism: Qualifiers: Hypothyroidism type: acquired Qualified Code(s): E03.9 - Hypothyroidism, unspecified Code(s): E03.9 - Hypothyroidism, unspecified Status: Acute Assessment and Plan: TSH 25.7, c/w nonadherence to medication 09/15 IV levothyroxine 50 mcg daily due to AMS, prevention of myxedema coma (4) Abdominal pain: Qualifiers: Abdominal location: upper abdomen, unspecified Qualified Code(s): R10.10 - Upper abdominal pain, unspecified Code(s): R10.9 - Unspecified abdominal pain Status: Acute Assessment and Plan: Suspect alcohol induced gastritis vs PUD CT Abd/pelvis with fatty liver, no other pathology identified 09/15 Pantoprazole 40mg IV q AM (5) Alcoholic ketosis: Code(s): E88.89 - Other specified metabolic disorders Status: Acute Assessment and Plan: Urine ketones +, no anion gap, low NL BS Thiamine, IV saline with dextrose (6) Hypokalemia: Code(s): E87.6 - Hypokalemia Status: Acute Assessment and Plan: Likely due to alcohol, poor PO intake Replace with IV supplementation (7) Tobacco abuse: Code(s): Z72.0 - Tobacco use Status: Acute Assessment and Plan: Continue nicotine patch Plan DVT prophylaxis with SCDs GI prophylaxis not indicated Code status full code Subjective Date/time seen: 09/26/22 12:34 Interval history: 79-year-old female with long history of alcoholism here for altered mental status, concerning for wernicke vs korsakoff. No overnight events noted. No chest pain or shortness of breath. No nausea, vomiting or diarrhea. No fevers or chills. Still hallucinating. 09/26/2022 interval history: Today patient is lying in the bed her brother is present in the room, CIWA portocol shows improvement on 09/22 and tapered Librium 25 mg p.r.n now librium stopped, patient potassium is now close to normal, will continue PT OT, patient will benefit going to rehab waiting for the placement possible tomorrow. Review of Systems Review of Systems: 12 point review of systems was assessed and was negative except as noted in the HPI Exam Narrative: Under nourished Patient is comfortable, NAD HEENT: eyes are clear and none icteric LUNGS: Normal respiratory effort ABD: Not distended Lower extremities: no edema SKIN: nonjaundiced Neuro: grossly intact. Objective Data Vital Signs Vital Signs: Vital Signs - 24 hr 09/25/22 14:00 09/25/22 20:00 09/25/22 22:00 Temperature 98.0 F 96.9 F L Pulse Rate 91 88 Respiratory Rate 16 16 Blood Pressure 124/62 148/76 H Pulse Oximetry 100 98 Oxygen Delivery Room Air 09/26/22 06:00 09/26/22 09:26 Temperature 96.6 F L Pulse Rate 72 Respiratory Rate 18 Blood Pressure Pulse Oximetry 100 Oxygen Delivery Room Air Intake/Output Intake/Output:
--- NOTE | 2022-09-26 13:26 | PC.NURSE ---
Pt is A&O1 female who has had family and significant other at bedside. Pt has reported no pain and is compliant with care this shift. Pt did attempt to get out of bed one time and has attempted pulling at midline, but has been redirected by brother. Pt has expressed no needs at this time. Will continue to monitor pt.
[2022-09-26 14:00] VITALS: BP 124/58; PULSE 79; RESP 14; TEMP 36.9; O2SAT 100
[2022-09-26 16:28] LABS: Glucose Point of Care 114 mg/dl (65-105)
[2022-09-26] MEDS: NICOTINE (*PBKC) 21 MG PATCH 1 PATCH TRANSDERM (17:48)
[2022-09-26 20:00] VITALS: PULSE 75; RESP 18; O2SAT 100
[2022-09-26 21:27] VITALS: O2SAT 100
[2022-09-26 21:31] LABS: Glucose Point of Care 112 mg/dl (65-105)
[2022-09-26 21:48] VITALS: BP 132/65; PULSE 75; RESP 18; TEMP 36.3; O2SAT 100
[2022-09-27 06:00] VITALS: BP 113/82; PULSE 67; RESP 16; TEMP 36.1; O2SAT 95
[2022-09-27] MEDS: SALINE LOCK FLUSH 10 ML IV PUSH ×3 (06:08→22:58)
[2022-09-27] MEDS: LEVOTHYROXINE SODIUM INJ 100 MCG/5 ML VIAL 50 MCG IV PUSH (06:11)
[2022-09-27 06:27] LABS: Hematocrit 30.5 % (37.0-47.0); Hemoglobin 10.2 g/dL (12.0-15.0); Mean Corpuscular HGB Conc 33.4 g/dl (32-36); Mean Corpuscular Hemoglobin 33.6 pg (26-34); Mean Corpuscular Volume 100.3 fl (80-100); Mean Platelet Volume 9.7 fl (7.4-10.4); Platelet Count Result 250 k/mm3 (150-375); Red Blood Count 3.04 M/mm3 (4.2-5.4); White Blood Count 8.1 K/mm3 (4.5-10.0)
[2022-09-27 06:41] LABS: Anion Gap 4 mmol/L (8-16); Blood Urea Nitrogen 16 mg/dL (7-17); Carbon Dioxide 26 mmol/L (22-30); Chloride 106 mmol/L (98-107); Estimated CRCL calculation 63 ml/min; Estimated Glomerular Filt Rate > 60; Glucose 104 mg/dL (65-110); Magnesium 1.8 mg/dL (1.6-2.3); Potassium 3.5 mmol/L (3.4-5.0); Sodium 136 mmol/L (137-145)
[2022-09-27 07:50] LABS: Glucose Point of Care 102 mg/dl (65-105)
[2022-09-27] MEDS: POTASSIUM CHLORIDE 20 MEQ ER TABLET 40 MEQ PO (08:34)
[2022-09-27] MEDS: PANTOPRAZOLE SODIUM IV 40 MG VIAL IV PUSH (08:34)
[2022-09-27] MEDS: THIAMINE HCL IVPB ×3 (08:34→16:51)
[2022-09-27] MEDS: FOLIC ACID 1 MG/0.2 ML INJ IV PUSH (08:34)
[2022-09-27] MEDS: SODIUM CHLORIDE 0.9% IVPB ×3 (08:34→16:51)
--- NOTE | 2022-09-27 09:09 | P.DS_ITS ---
DS: Summary Time Spent with Patient Time attestation: Total time spent providing and/or coordinating discharge services: DS: Data Data Completed and Pending Labs on day of discharge: Labs from last 24 hours 09/27/22 09/27/22 09/26/22 07:45 06:19 21:27 WBC 8.1 RBC 3.04 L Hgb 10.2 L Hct 30.5 L MCV 100.3 H MCH 33.6 MCHC 33.4 RDW 13.0 Plt Count 250 MPV 9.7 Sodium 136 L Potassium 3.5 Chloride 106 Carbon Dioxide 26 Anion Gap 4 L BUN 16 Creatinine 0.50 L Estim Creat Clear Calc 63 Estimated GFR > 60 Glucose 104 POC Capillary Glucose 102 112 H Calcium 9.0 Magnesium 1.8 09/26/22 09/26/22 16:23 11:29 WBC RBC Hgb Hct MCV MCH MCHC RDW Plt Count MPV Sodium Potassium Chloride Carbon Dioxide Anion Gap BUN Creatinine Estim Creat Clear Calc Estimated GFR Glucose POC Capillary Glucose 114 H 117 H Calcium Magnesium Discharge Plan Discharge Attending physician on discharge: Jaime Ko Consulting providers: Janice Pierce Discharging Clinician: Jaime Ko [facility] Activity: as tolerated Diet: heart healthy Discharge Instructions: Patient to follow-up with her primary care provider as soon as possible Patient Instructions: Antibiotic Form, How to Stop Smoking (DC), Pain Management in Older Adults (GEN), Alcohol Withdrawal (DC) Stand Alone Forms: General Discharge Information Follow-up/Referrals: Su,Clinton Bazzi MD [Primary Care Provider] - Discharge Medications: New folic acid 1 mg tablet 1 mg PO DAILY Qty: 90 0RF thiamine HCl (vitamin B1) [Vitamin B-1] 100 mg Tablet 100 mg PO QAM Qty: 100 0RF nicotine [Nicoderm CQ] 21 mg/24 hr Patch 24 Hour 1 patch transdermal QAM Qty: 28 0RF Continued levothyroxine [Synthroid] 88 mcg tablet 88 mcg PO DAILY Date of admission: 09/17/22 12:36 Primary Care Provider: SuClinton Admitting Provider: Dirk Mccauley Attending physician on admission: Jose Juan Matute Condition: Stable
[2022-09-27 11:35] LABS: Glucose Point of Care 93 mg/dl (65-105)
--- NOTE | 2022-09-27 13:16 | PC.NURSE ---
Pt is alert and oriented to person. Pt continues to pull at villarreal and midline. Pt was discharged, but daughter has refused discharge facility. Pt was resubmitted to other facilities awaiting responses. Pt getting bath with tech today. Pt not compliant with potassium, but is compliant with IV medication. Will continue to monitor pt.
[2022-09-27 14:00] VITALS: BP 115/73; PULSE 75; RESP 16; TEMP 36.5; O2SAT 100
[2022-09-27 16:37] LABS: Glucose Point of Care 109 mg/dl (65-105)
[2022-09-27 20:17] VITALS: BP 136/84; PULSE 76; RESP 16; TEMP 36.2; O2SAT 98
[2022-09-27 20:24] LABS: Glucose Point of Care 111 mg/dl (65-105)
[2022-09-28] MEDS: SALINE LOCK FLUSH 10 ML IV PUSH (06:21)
[2022-09-28 07:23] LABS: Hematocrit 33.4 % (37.0-47.0); Mean Corpuscular HGB Conc 32.9 g/dl (32-36); Mean Corpuscular Hemoglobin 34.1 pg (26-34); Mean Corpuscular Volume 103.4 fl (80-100); Mean Platelet Volume 9.7 fl (7.4-10.4); Platelet Count Result 238 k/mm3 (150-375); Red Blood Count 3.23 M/mm3 (4.2-5.4); Red Cell Distribution Width 13.2 % (11.5-14.5); White Blood Count 8.9 K/mm3 (4.5-10.0)
[2022-09-28 07:29] LABS: Glucose Point of Care 100 mg/dl (65-105)
[2022-09-28 07:46] LABS: Anion Gap 3 mmol/L (8-16); Blood Urea Nitrogen 12 mg/dL (7-17); Calcium 9.1 mg/dL (8.4-10.2); Carbon Dioxide 26 mmol/L (22-30); Chloride 105 mmol/L (98-107); Estimated CRCL calculation 63 ml/min; Estimated Glomerular Filt Rate > 60; Glucose 107 mg/dL (65-110); Magnesium 1.9 mg/dL (1.6-2.3); Potassium 3.7 mmol/L (3.4-5.0); Sodium 134 mmol/L (137-145)
[2022-09-28] MEDS: THIAMINE HCL 100 MG TABLET PO (08:12)
[2022-09-28 11:28] LABS: Glucose Point of Care 114 mg/dl (65-105)
[2022-09-28 14:00] VITALS: BP 121/63; PULSE 76; RESP 12; TEMP 36.6; O2SAT 97
[2022-09-28 16:42] LABS: Glucose Point of Care 122 mg/dl (65-105)
--- NOTE | 2022-09-28 18:37 | WPDPN ---
Progress Note: A&P Assessment and Plan (1) Altered mental status: Qualifiers: Altered mental status type: unspecified Qualified Code(s): R41.82 - Altered mental status, unspecified Code(s): R41.82 - Altered mental status, unspecified Status: Acute Assessment and Plan: 09/14 CT Brain: No intracranial hemorrhage, mass, or acute infarct. 09/15 MRI Brain negative for any acute pathology Likely secondary to chronic alcoholism 09/27/2022 interval history: Today patient is lying in the bed her brother is present in the room, CIWA portocol shows improvement on 09/22 and tapered Librium 25 mg p.r.n now librium stopped, patient potassium is now close to normal, will continue PT OT, patient will benefit going to rehab waiting for the placement possible tomorrow. (2) Alcohol abuse: Code(s): F10.10 - Alcohol abuse, uncomplicated Status: Acute Assessment and Plan: Continue with the CIWA score, last one was 9 Still actively hallucinating Thiamine increased per neurology Concern for wernicke/kosakoff (3) Hypothyroidism: Qualifiers: Hypothyroidism type: acquired Qualified Code(s): E03.9 - Hypothyroidism, unspecified Code(s): E03.9 - Hypothyroidism, unspecified Status: Acute Assessment and Plan: TSH 25.7, c/w nonadherence to medication 09/15 IV levothyroxine 50 mcg daily due to AMS, prevention of myxedema coma (4) Abdominal pain: Qualifiers: Abdominal location: upper abdomen, unspecified Qualified Code(s): R10.10 - Upper abdominal pain, unspecified Code(s): R10.9 - Unspecified abdominal pain Status: Acute Assessment and Plan: Suspect alcohol induced gastritis vs PUD CT Abd/pelvis with fatty liver, no other pathology identified 09/15 Pantoprazole 40mg IV q AM (5) Alcoholic ketosis: Code(s): E88.89 - Other specified metabolic disorders Status: Acute Assessment and Plan: Urine ketones +, no anion gap, low NL BS Thiamine, IV saline with dextrose (6) Hypokalemia: Code(s): E87.6 - Hypokalemia Status: Acute Assessment and Plan: Likely due to alcohol, poor PO intake Replace with IV supplementation (7) Tobacco abuse: Code(s): Z72.0 - Tobacco use Status: Acute Assessment and Plan: Continue nicotine patch Plan DVT prophylaxis with SCDs GI prophylaxis not indicated Code status full code Subjective Date/time seen: 09/28/22 18:37 Interval history: 79-year-old female with long history of alcoholism here for altered mental status, concerning for wernicke vs korsakoff. No overnight events noted. No chest pain or shortness of breath. No nausea, vomiting or diarrhea. No fevers or chills. Still hallucinating. 09/27/2022 interval history: Today patient is lying in the bed her brother is present in the room, CIWA portocol shows improvement on 09/22 and tapered Librium 25 mg p.r.n now librium stopped, patient potassium is now close to normal, will continue PT OT, patient will benefit going to rehab waiting for the placement possible tomorrow. Review of Systems Review of Systems: 12 point review of systems was assessed and was negative except as noted in the HPI Exam Narrative: Under nourished Patient is comfortable, NAD HEENT: eyes are clear and none icteric LUNGS: Normal respiratory effort ABD: Not distended Lower extremities: no edema SKIN: nonjaundiced Neuro: grossly intact. Objective Data Vital Signs Vital Signs: Vital Signs - 24 hr 09/27/22 20:17 09/28/22 08:15 09/28/22 14:00 Temperature 97.2 F L 97.9 F Pulse Rate 76 76 Respiratory Rate 16 12 Blood Pressure 136/84 121/63 Pulse Oximetry 98 97 Oxygen Delivery Room Air Intake/Output Intake/Output: Intake & Output 09/25/22 09/26/22 09/27/22 09/28/22 23:59 23:59 23:59 23:59 Intake Total 2282.5 815.5 1147.5 240 Output Total 1750 1150 1775 1100 Balance
--- NOTE | 2022-09-28 18:39 | WPDPN ---
Progress Note: A&P Assessment and Plan (1) Altered mental status: Qualifiers: Altered mental status type: unspecified Qualified Code(s): R41.82 - Altered mental status, unspecified Code(s): R41.82 - Altered mental status, unspecified Status: Acute Assessment and Plan: 09/14 CT Brain: No intracranial hemorrhage, mass, or acute infarct. 09/15 MRI Brain negative for any acute pathology Likely secondary to chronic alcoholism 09/28/2022 interval history: Today patient is lying in the bed her brother is present in the room, CIWA portocol shows improvement on 09/22 and tapered Librium 25 mg p.r.n now librium stopped, patient potassium is now close to normal, will continue PT OT, patient will benefit going to rehab waiting for the placement possible tomorrow. still waiting for insurance authrization (2) Alcohol abuse: Code(s): F10.10 - Alcohol abuse, uncomplicated Status: Acute Assessment and Plan: Continue with the CIWA score, last one was 9 Still actively hallucinating Thiamine increased per neurology Concern for wernicke/kosakoff (3) Hypothyroidism: Qualifiers: Hypothyroidism type: acquired Qualified Code(s): E03.9 - Hypothyroidism, unspecified Code(s): E03.9 - Hypothyroidism, unspecified Status: Acute Assessment and Plan: TSH 25.7, c/w nonadherence to medication 09/15 IV levothyroxine 50 mcg daily due to AMS, prevention of myxedema coma (4) Abdominal pain: Qualifiers: Abdominal location: upper abdomen, unspecified Qualified Code(s): R10.10 - Upper abdominal pain, unspecified Code(s): R10.9 - Unspecified abdominal pain Status: Acute Assessment and Plan: Suspect alcohol induced gastritis vs PUD CT Abd/pelvis with fatty liver, no other pathology identified 09/15 Pantoprazole 40mg IV q AM (5) Alcoholic ketosis: Code(s): E88.89 - Other specified metabolic disorders Status: Acute Assessment and Plan: Urine ketones +, no anion gap, low NL BS Thiamine, IV saline with dextrose (6) Hypokalemia: Code(s): E87.6 - Hypokalemia Status: Acute Assessment and Plan: Likely due to alcohol, poor PO intake Replace with IV supplementation (7) Tobacco abuse: Code(s): Z72.0 - Tobacco use Status: Acute Assessment and Plan: Continue nicotine patch Plan DVT prophylaxis with SCDs GI prophylaxis not indicated Code status full code Subjective Date/time seen: 09/28/22 18:39 Interval history: 79-year-old female with long history of alcoholism here for altered mental status, concerning for wernicke vs korsakoff. No overnight events noted. No chest pain or shortness of breath. No nausea, vomiting or diarrhea. No fevers or chills. Still hallucinating. 09/28/2022 interval history: Today patient is lying in the bed her brother is present in the room, CIWA portocol shows improvement on 09/22 and tapered Librium 25 mg p.r.n now librium stopped, patient potassium is now close to normal, will continue PT OT, patient will benefit going to rehab waiting for the placement possible tomorrow. still waiting for insurance authrization Review of Systems Review of Systems: 12 point review of systems was assessed and was negative except as noted in the HPI Exam Narrative: Under nourished Patient is comfortable, NAD HEENT: eyes are clear and none icteric LUNGS: Normal respiratory effort ABD: Not distended Lower extremities: no edema SKIN: nonjaundiced Neuro: grossly intact. Objective Data Vital Signs Vital Signs: Vital Signs - 24 hr 09/27/22 20:17 09/28/22 08:15 09/28/22 14:00 Temperature 97.2 F L 97.9 F Pulse Rate 76 76 Respiratory Rate 16 12 Blood Pressure 136/84 121/63 Pulse Oximetry 98 97 Oxygen Delivery Room Air Intake/Output Intake/Output: Intake & Output 09/25/22 09/26/22 09/27/22 09/28/22 23:59 23:59 23:59 23:59
[2022-09-28 20:58] LABS: Glucose Point of Care 133 mg/dl (65-105)
[2022-09-28 22:00] VITALS: BP 124/55; PULSE 66; RESP 18; TEMP 36.5; O2SAT 97
[2022-09-29 06:33] LABS: Hematocrit 32.5 % (37.0-47.0); Hemoglobin 10.4 g/dL (12.0-15.0); Mean Corpuscular Hemoglobin 33.3 pg (26-34); Mean Corpuscular Volume 104.2 fl (80-100); Mean Platelet Volume 9.6 fl (7.4-10.4); Platelet Count Result 254 k/mm3 (150-375); Red Blood Count 3.12 M/mm3 (4.2-5.4); Red Cell Distribution Width 13.2 % (11.5-14.5); White Blood Count 9.6 K/mm3 (4.5-10.0)
[2022-09-29] MEDS: LEVOTHYROXINE SODIUM 100 MCG TABLET PO (06:38)
[2022-09-29 06:45] LABS: Anion Gap 1 mmol/L (8-16); Blood Urea Nitrogen 19 mg/dL (7-17); Carbon Dioxide 26 mmol/L (22-30); Chloride 105 mmol/L (98-107); Estimated CRCL calculation 63 ml/min; Estimated Glomerular Filt Rate > 60; Glucose 111 mg/dL (65-110); Potassium 3.8 mmol/L (3.4-5.0); Sodium 132 mmol/L (137-145)
[2022-09-29 07:44] LABS: Glucose Point of Care 105 mg/dl (65-105)
[2022-09-29] MEDS: FOLIC ACID 1 MG TABLET PO (08:08)
[2022-09-29] MEDS: THIAMINE HCL 100 MG TABLET PO (08:08)
[2022-09-29] MEDS: PANTOPRAZOLE 40 MG TABLET PO (08:08)
--- NOTE | 2022-09-29 09:45 | WPDPN ---
Progress Note: A&P Assessment and Plan (1) Altered mental status: Qualifiers: Altered mental status type: unspecified Qualified Code(s): R41.82 - Altered mental status, unspecified Code(s): R41.82 - Altered mental status, unspecified Status: Acute Assessment and Plan: 09/14 CT Brain: No intracranial hemorrhage, mass, or acute infarct. 09/15 MRI Brain negative for any acute pathology Likely secondary to chronic alcoholism 09/29/2022 interval history: Today patient is lying in the bed her brother is present in the room, CIWA portocol shows improvement on 09/22 and tapered Librium 25 mg p.r.n now librium stopped, patient potassium is now close to normal, will continue PT OT, patient will benefit going to rehab waiting for the placement possible today or tomorrow. there are no new complaints, still waiting for insurance authrization (2) Alcohol abuse: Code(s): F10.10 - Alcohol abuse, uncomplicated Status: Acute Assessment and Plan: Continue with the CIWA score, last one was 9 Still actively hallucinating Thiamine increased per neurology Concern for wernicke/kosakoff (3) Hypothyroidism: Qualifiers: Hypothyroidism type: acquired Qualified Code(s): E03.9 - Hypothyroidism, unspecified Code(s): E03.9 - Hypothyroidism, unspecified Status: Acute Assessment and Plan: TSH 25.7, c/w nonadherence to medication 09/15 IV levothyroxine 50 mcg daily due to AMS, prevention of myxedema coma (4) Abdominal pain: Qualifiers: Abdominal location: upper abdomen, unspecified Qualified Code(s): R10.10 - Upper abdominal pain, unspecified Code(s): R10.9 - Unspecified abdominal pain Status: Acute Assessment and Plan: Suspect alcohol induced gastritis vs PUD CT Abd/pelvis with fatty liver, no other pathology identified 09/15 Pantoprazole 40mg IV q AM (5) Alcoholic ketosis: Code(s): E88.89 - Other specified metabolic disorders Status: Acute Assessment and Plan: Urine ketones +, no anion gap, low NL BS Thiamine, IV saline with dextrose (6) Hypokalemia: Code(s): E87.6 - Hypokalemia Status: Acute Assessment and Plan: Likely due to alcohol, poor PO intake Replace with IV supplementation (7) Tobacco abuse: Code(s): Z72.0 - Tobacco use Status: Acute Assessment and Plan: Continue nicotine patch Plan DVT prophylaxis with SCDs GI prophylaxis not indicated Code status full code Subjective Date/time seen: 09/29/22 09:45 Interval history: 79-year-old female with long history of alcoholism here for altered mental status, concerning for wernicke vs korsakoff. No overnight events noted. No chest pain or shortness of breath. No nausea, vomiting or diarrhea. No fevers or chills. Still hallucinating. 09/29/2022 interval history: Today patient is lying in the bed her brother is present in the room, CIWA portocol shows improvement on 09/22 and tapered Librium 25 mg p.r.n now librium stopped, patient potassium is now close to normal, will continue PT OT, patient will benefit going to rehab waiting for the placement possible today or tomorrow. there are no new complaints, still waiting for insurance authrization Review of Systems Review of Systems: 12 point review of systems was assessed and was negative except as noted in the HPI Exam Narrative: Under nourished Patient is comfortable, NAD HEENT: eyes are clear and none icteric LUNGS: Normal respiratory effort ABD: Not distended Lower extremities: no edema SKIN: nonjaundiced Neuro: grossly intact. Objective Data Vital Signs Vital Signs: Vital Signs - 24 hr 09/28/22 14:00 09/28/22 22:00 Temperature 97.9 F 97.7 F Pulse Rate 76 66 Respiratory Rate 12 18 Blood Pressure 121/63 124/55 L Pulse Oximetry 97 97 Intake/Output Intake/Output: Intake & Output 09/26/22 09/27/22 09/28/2209/29
[2022-09-29 11:43] LABS: Glucose Point of Care 106 mg/dl (65-105)
[2022-09-29 14:00] VITALS: BP 149/83; PULSE 75; RESP 14; TEMP 35.9; O2SAT 100
[2022-09-29] MEDS: chlordiazePOXIDE (*CRX) 25 MG CAPSULE 50 MG PO (14:06)
--- NOTE | 2022-09-29 14:43 | PC.NURSE ---
Pt has been increasingly restless and severely agitated since early this morning. Her restlessness and agitation have significantly increased including but not limited to pulling her villarreal catheter apart, repeatedly attempting to pull her villarreal catheter out completely, tearing the bed apart, attempting to leave, and becoming combative with her brother (who has been the only person with whom she has been calm and compliant). Pt kept repeating (between her confused delusions) Nobody is going to tell me what to do!
[2022-09-29 16:43] LABS: Glucose Point of Care 140 mg/dl (65-105)
[2022-09-29 20:28] VITALS: BP 119/55; PULSE 73; RESP 15; TEMP 36.7; O2SAT 100
[2022-09-29 20:28] LABS: Glucose Point of Care 117 mg/dl (65-105)
[2022-09-30 06:00] VITALS: BP 139/69; PULSE 71; RESP 13; TEMP 36.3; O2SAT 100
[2022-09-30] MEDS: LEVOTHYROXINE SODIUM 100 MCG TABLET PO (06:05)
[2022-09-30 06:18] LABS: Hematocrit 32.4 % (37.0-47.0); Hemoglobin 10.5 g/dL (12.0-15.0); Mean Corpuscular HGB Conc 32.4 g/dl (32-36); Mean Corpuscular Hemoglobin 34.2 pg (26-34); Mean Corpuscular Volume 105.5 fl (80-100); Mean Platelet Volume 9.5 fl (7.4-10.4); Platelet Count Result 224 k/mm3 (150-375); Red Blood Count 3.07 M/mm3 (4.2-5.4); Red Cell Distribution Width 13.3 % (11.5-14.5); White Blood Count 7.2 K/mm3 (4.5-10.0)
[2022-09-30 06:24] LABS: Anion Gap 1 mmol/L (8-16); Blood Urea Nitrogen 17 mg/dL (7-17); Calcium 8.9 mg/dL (8.4-10.2); Carbon Dioxide 27 mmol/L (22-30); Chloride 106 mmol/L (98-107); Estimated CRCL calculation 63 ml/min; Estimated Glomerular Filt Rate > 60; Glucose 110 mg/dL (65-110); Magnesium 2.1 mg/dL (1.6-2.3); Potassium 3.6 mmol/L (3.4-5.0); Sodium 134 mmol/L (137-145)
[2022-09-30 07:22] LABS: Glucose Point of Care 123 mg/dl (65-105)
[2022-09-30] MEDS: FOLIC ACID 1 MG TABLET PO (08:15)
[2022-09-30] MEDS: THIAMINE HCL 100 MG TABLET PO (08:15)
[2022-09-30] MEDS: NICOTINE (*PBKC) 21 MG PATCH 1 PATCH TRANSDERM (08:16)
[2022-09-30] MEDS: PANTOPRAZOLE 40 MG TABLET PO (08:16)
--- NOTE | 2022-09-30 11:52 | PM.DS ---
DS: Admitting Diagnosis Discharge Date 09/30/2022 Admitting Diagnosis Fall with head injury DS: Discharge Diagnosis Discharge Diagnosis (1) Altered mental status: Qualifiers: Altered mental status type: unspecified Qualified Code(s): R41.82 - Altered mental status, unspecified Code(s): R41.82 - Altered mental status, unspecified Status: Acute Assessment and Plan: 09/14 CT Brain: No intracranial hemorrhage, mass, or acute infarct. 09/15 MRI Brain negative for any acute pathology Likely secondary to chronic alcoholism 09/29/2022 interval history: Today patient is lying in the bed her brother is present in the room, CIWA portocol shows improvement on 09/22 and tapered Librium 25 mg p.r.n now librium stopped, patient potassium is now close to normal, will continue PT OT, patient will benefit going to rehab waiting for the placement possible today or tomorrow. there are no new complaints, still waiting for insurance authrization (2) Alcohol abuse: Code(s): F10.10 - Alcohol abuse, uncomplicated Status: Acute Assessment and Plan: Continue with the CIWA score, last one was 9 Still actively hallucinating Thiamine increased per neurology Concern for wernicke/kosakoff (3) Hypothyroidism: Qualifiers: Hypothyroidism type: acquired Qualified Code(s): E03.9 - Hypothyroidism, unspecified Code(s): E03.9 - Hypothyroidism, unspecified Status: Acute Assessment and Plan: TSH 25.7, c/w nonadherence to medication 09/15 IV levothyroxine 50 mcg daily due to AMS, prevention of myxedema coma (4) Abdominal pain: Qualifiers: Abdominal location: upper abdomen, unspecified Qualified Code(s): R10.10 - Upper abdominal pain, unspecified Code(s): R10.9 - Unspecified abdominal pain Status: Acute Assessment and Plan: Suspect alcohol induced gastritis vs PUD CT Abd/pelvis with fatty liver, no other pathology identified 09/15 Pantoprazole 40mg IV q AM (5) Alcoholic ketosis: Code(s): E88.89 - Other specified metabolic disorders Status: Acute Assessment and Plan: Urine ketones +, no anion gap, low NL BS Thiamine, IV saline with dextrose (6) Hypokalemia: Code(s): E87.6 - Hypokalemia Status: Acute Assessment and Plan: Likely due to alcohol, poor PO intake Replace with IV supplementation (7) Tobacco abuse: Code(s): Z72.0 - Tobacco use Status: Acute Assessment and Plan: Continue nicotine patch Plan DVT prophylaxis with SCDs GI prophylaxis not indicated Code status full code DS: Summary Hospital Course Reason for hospitalization: Fall with head injury Narrative: This is a 71-year-old female patient who lives at home alone.? She does have a significant other by the name of [employer] that checks on her every day.? She has a history of hypothyroidism.? She was brought by EMS after a fall at home.? The patient had the left side of her head has a hematoma there.? She denies any nausea vomiting or diarrhea.? No burning with urination.? According to the daughter the patient has been having difficulty with ambulation and has been off balance.? Abdominal pelvis CT was read as no acute abnormality diffuse fatty infiltration of the liver.? Chest x-ray was read as clear lungs.? Cervical spine CT was read as no fracture subluxation of the cervical spine.? Mild degenerative spondylosis.? Head CT was read as no intracranial hemorrhage mass or acute infarct.? Atrophy and chronic white matter changes.? The patient reports that she drinks wine daily.? Her alcohol level was less than 10.? Her white count was noted to be 16.2.? The patient does have a large hematoma to the left side of her head.? The patient does appear to be dry.? She has been having poor oral intake.? According to the daughter the patient is losing weight.? Glucose is 146.? Lactic acid was 3.4 now 2.9.? The patient has 4+ ketones and 1+ urine
== END 2022-09-30 14:41 | DRG 897 ==
LOC: ANHED 18:57 → ANH3MEDSUR 19:07
PROVIDERS: Family Medicine; Hospitalist; Internal Medicine; Nurse Practitioner; Student in an Organized Health Care Education/Training Program; Admitting Provider Internal Medicine; Emergency Provider Preventive Medicine Aerospace Medicine; PCP Family Medicine; Visit Provider Family Medicine
DX: F10.239 Alcohol dependence with withdrawal, unspecified (principal); E44.1 Mild protein-calorie malnutrition; Z68.1 Body mass index [BMI] 19.9 or less, adult; R44.0 Auditory hallucinations; R44.1 Visual hallucinations; K29.20 Alcoholic gastritis without bleeding; Y90.0 Blood alcohol level of less than 20 mg/100 ml; S00.83XA Contusion of other part of head, initial encounter; W19.XXXA Unspecified fall, initial encounter; E88.89 Other specified metabolic disorders; E87.6 Hypokalemia; E03.9 Hypothyroidism, unspecified; F17.210 Nicotine dependence, cigarettes, uncomplicated; K76.0 Fatty (change of) liver, not elsewhere classified; M47.812 Spondylosis without myelopathy or radiculopathy, cervical region; Z90.710 Acquired absence of both cervix and uterus; Z90.89 Acquired absence of other organs
CPT/HCPCS: 36415; 36569; 70450; 70553; 71045; 72125; 74177; 80048; 80053; 80307; 81001; 82140; 82550; 82607; 82747; 82948; 83605; 83690; 83735; 83880; 84100; 84439; 84443; 84484; 85025; 85027; 85055; 85610; 93005; 93880; 96361; 96365; 96366; 96367; 96375; 96376; 97110; 97161; 97165; 97530; 97535; 99285; A9270; A9577; C1751; C9113; G0378; J2060; J3411; J3475; J3480; J7030; J7040; J7042; J7060; J7120; Q9967

== ENCOUNTER 2022-10-06 19:30 | Emergency (ER) | payer MEDICARE, SELFPAY ==
[2022-10-06 19:32] VITALS: BP 120/80; PULSE 77; RESP 18; O2SAT 100
--- NOTE | 2022-10-06 19:41 | ECG_ITS ---
Measurements Intervals [place] Rate: 76 P: 76 [place]: 161 QRS: 56 QRSD: 70 T: 89 QT: 370 QTc: 417 Interpretive Statements SINUS RHYTHM NONSPECIFIC T-WAVE ABNORMALITY- ANT/HIGH LAT LEADS BASELINE ARTIFACT- I, II, III, AVL, AVF, V3-V4 BORDERLINE ECG COMPARED TO ECG 09/14/2022 14:41:22 SINUS RHYTHM NOW PRESENT T-WAVE ABNORMALITY NOW PRESENT Electronically Signed On 10-07-2022 6:48:02 CDT by Ranjeet Scott D.O.
[2022-10-06 19:48] LABS: Basophils Absolute Auto 0.1 K/mm3 (0.0-0.1); Eosinophils Absolute Auto 0.2 K/mm3 (0-0.3); Eosinophils Percent Auto 2.5 % (0-4.4); Hematocrit 31.5 % (37.0-47.0); Hemoglobin 10.1 g/dL (12.0-15.0); Immature Granulocyte Absolute 0.06 K/mm3 (0.00-0.031); Immature Granulocyte Percent A 0.8 % (0-0.5); Lymphocytes Absolute Auto 2.24 K/mm3 (0.9-3.2); Lymphocytes Percent Auto 28.3 % (18.3-44.2); Mean Corpuscular HGB Conc 32.1 g/dl (32-36); Mean Corpuscular Hemoglobin 33.9 pg (26-34); Mean Corpuscular Volume 105.7 fl (80-100); Mean Platelet Volume 8.8 fl (7.4-10.4); Monocytes Absolute Auto 0.7 K/mm3 (0.1-0.6); Monocytes Percent Auto 9.1 % (2.6-8.5); Neutrophils Absolute Auto 4.6 K/mm3 (1.3-6.7); Neutrophils Percent Auto 58.3 % (45.5-73.1); Platelet Count Result 310 k/mm3 (150-375); Red Blood Count 2.98 M/mm3 (4.2-5.4); Red Cell Distribution Width 13.9 % (11.5-14.5); White Blood Count 7.9 K/mm3 (4.5-10.0)
--- NOTE | 2022-10-06 19:57 | PC.NURSE ---
Attempted to call [facility] twice with no answer each time.
[2022-10-06 19:59] LABS: Alanine Aminotransferase 32 U/L (6-35); Albumin Level 3.7 g/dL (3.5-5.1); Alkaline Phosphatase 87 U/L (38-126); Anion Gap 7 mmol/L (8-16); Aspartate Amino Transferase 31 U/L (14-36); Bilirubin,Total 0.3 mg/dL (0.2-1.3); Blood Urea Nitrogen 13 mg/dL (7-17); Calcium 8.7 mg/dL (8.4-10.2); Carbon Dioxide 29 mmol/L (22-30); Chloride 104 mmol/L (98-107); Estimated CRCL calculation 65 ml/min; Estimated Glomerular Filt Rate > 60; Glucose 108 mg/dL (65-110); Potassium 3.1 mmol/L (3.4-5.0); Sodium 140 mmol/L (137-145)
[2022-10-06 20:00] LABS: Ethanol < 10 mg/dL (<10)
[2022-10-06 20:01] LABS: Anisocytosis 1+ (NORMAL); Macrocytosis 1+ (NORMAL); Platelet Estimate Adequate (Adequate); Stomatocytes 1+ (NORMAL)
[2022-10-06 20:02] LABS: Schistocytes None Seen (NORMAL)
--- NOTE | 2022-10-06 20:11 | ED.GENADULT ---
HPI - General Adult General Chief complaint: Unspecified Stated complaint: combative Time Seen by Provider: 10/06/22 19:38 History of Present Illness HPI narrative: Patient 72-year-old female who presents the emergency department with chief complaint of aggressive behavior at the long term. Patient was recently admitted to the hospital for abdominal pain and alcohol withdrawal the patient was discharged to a local nursing facility and per the nursing staff the patient was argumentative with them and pinched staff members the patient denies being suicidal denies homicidal ideation reports that she really just did not want to be there at the time. The patient states that she feels fine currently and has no complaints. Related Data Home Medications Medication Instructions Recorded Confirmed levothyroxine 88 mcg tablet 88 mcg PO DAILY 09/14/22 09/14/22 (Synthroid) Allergies Allergy/AdvReac Type Severity Reaction Status Date / Time No Known Allergies Allergy Verified 09/15/22 08:36 Review of Systems Review of Systems: A 10 system review of systems was completed on the patient and is negative except for what is stated in the HPI. Nursing and ancillary documentation was reviewed. [facility] Past Medical History Medical History Hypothyroidism Tobacco abuse Surgical History Surgical History H/O thyroidectomy H/O: hysterectomy S/P tonsillectomy and adenoidectomy Family History Family History Other Hypertension Social History Social History Social History: The patient is and lives home alone. 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 She has 1 daughter who is the durable power bankruptcy attorney for healthcare. The patient smoked many years ago and quit for 22 years and recently started smoking again at least a pack a day. The patient stated that she drinks wine every day and tries not to drink a bottle wine a day. Code status full code Smoking packs per day: 2 Smoking cigarettes per day: 40.0 Smoking status: Current every day smoker Tobacco type: cigarettes Second hand tobacco smoke exposure: No Alcohol intake: never Substance use: never Substance use type: does not use Spiritual care concerns: No Exam Narrative: GENERAL: Well-appearing, well-nourished, and in no acute distress. HEAD: Normocephalic, atraumatic. EYES: PERRLA and EOMI. ENT: Nares clear, no rhinorrhea or epistaxis. Mucous membranes moist. NECK: Supple. CHEST: Clear to auscultation. No respiratory distress. HEART: Regular rate and rhythm. No murmur heard. Normal peripheral pulses. ABDOMEN: Soft, nontender, nondistended, normal active bowel sounds. EXTREMITIES: Normal range of motion. No edema. SKIN: Warm, dry, no rash. NEURO: No focal deficits. Alert and oriented x3 appears to be pleasantly confused. PSYCH: Normal mood and affect. Course Course Emergency Course: Differential diagnoses include psychosis, UTI, delirium, uncooperative behavior, alcohol intoxication, Laboratory studies were obtained on the patient which showed a negative alcohol urinalysis showed greater than 100 white blood cells in the urine CBC was within normal limits and CMP was also within normal limits. The patient restarted on Keflex and urine culture will be sent and the patient will be discharged back to the long term Vital Signs Vital signs: Vital Signs Pulse Rate 77 10/06/22 19:32 Respiratory Rate 18 10/06/22 19:32 Blood Pressure 120/80 10/06/22 19:32 Pulse Oximetry 100 10/06/22 19:32 Oxygen Delivery Room Air 10/06/22 19:32 Pulse Rate 77 10/06/22 19:32 Respiratory Rate 18 10/06/22 19:32 Blood Pressure 120/80 10/06/22 19:32 Pulse Oximetr
[2022-10-06 20:16] LABS: Appearance Urine Turbid (Clear); Bacteria Urine 4+ /hpf; Bilirubin Urine Negative (Negative); Blood Urine Negative (Negative); Color Urine Yellow (Yellow); Glucose Urine UA Negative (Negative); Ketones Urine Trace mg/dL (Negative); Leukocyte Esterase Ur 3+ LEU/UL (Negative); Mucus Urine Present /lpf; Need Manual Microscopic Reviewed; Nitrate Urine Positive (Negative); Non Pathogenic Casts >20; Protein Urine Trace mg/dL (Negative); RBC Urine 0-2 /hpf (0-2); Specific Grav Ur 1.019 (1.001-1.035); Squamous Epithelial Cell Urine None seen /hpf (Few); WBC Urine >100 /hpf
[2022-10-06 20:17] LABS: Add Urine Microscopic? YES
[2022-10-06] MEDS: CEPHALEXIN 500 MG CAPSULE PO (21:30)
[2022-10-06 21:45] VITALS: BP 131/90; PULSE 72; RESP 18; O2SAT 98
== END 2022-10-06 21:45 ==
PROVIDERS: Emergency Provider Emergency Medicine; PCP Family Medicine
DX: N39.0 Urinary tract infection, site not specified (principal); E89.0 Postprocedural hypothyroidism; Z90.710 Acquired absence of both cervix and uterus; F17.210 Nicotine dependence, cigarettes, uncomplicated; R94.31 Abnormal electrocardiogram [ECG] [EKG]; Z79.899 Other long term (current) drug therapy
CPT/HCPCS: 36415; 80053; 80307; 81001; 85025; 87086; 87088; 93005; 99283; A9270